=== PATIENT | female | born 1985 | race African-American/Black ===

== ENCOUNTER 2016-10-24 22:14 | Emergency (ER) | payer MEDICAID ==
[~2016-10-24] VITALS: Ht 172.7 cm; Wt 64.0 kg
[~2016-10-24 22:14] MED LIST: FOLIC ACID PO; HYDR-519 PO; [UNRECOGNIZED DRUG - OTHER]
[2016-10-24] MEDS ORDERED: SODIUM CHLORIDE 0.9% 1,000 ML IV ONE (23:38)
[2016-10-24] MEDS ORDERED: KETOROLAC 30MG/ML VIAL IV STA (23:38)
[2016-10-24] MEDS ORDERED: DIPHENHYDRAMINE 50MG/ML VIAL IV ONE (23:45)
[2016-10-25 00:12] LABS: CHLORIDE 109 mEq/L (98-107)
[2016-10-25 00:20] LABS: CARBON DIOXIDE 22 mEq/L (21-32)
[2016-10-25 00:25] LABS: HEMOGLOBIN. 8.3 g/dL (12.0-16.0)
[2016-10-25 00:57] LABS: RED BLOOD CELL COUNT 2.38 mill/uL (4.2-5.4)
[2016-10-25 00:58] LABS: HEMATOCRIT. 22.7 % (36.0-48.0); MEAN CORPUSCULAR HEMOGLOBIN 33.8 pg (28.0-32.0); MEAN CORPUSCULAR VOLUME 95.6 fL (81.0-99.0); MEAN PLATELET VOLUME 9.8 fl (7.4-10.4); NEUTROPHILS % 51.6 % (40.0-76.0); PLATELET 297 x1000/uL (130-400); RED CELL DISTRIBUTION WIDTH 26.3 % (11.6-14.6)
[2016-10-25 00:59] LABS: BASOPHILS % 1.3 % (0.0-2.0); EOSINOPHILS % 3.7 % (0.0-5.0); MONOCYTES % 7.4 % (2.0-8.0)
[2016-10-25 01:35] VITALS: BP 117/74
[2016-10-25] MEDS ORDERED: MORPHINE SULFATE 4 MG/ML CPJ (NOT FOR IM USE) IV ONE (01:45)
[2016-10-25] MEDS ORDERED: ONDANSETRON HCL 4MG/2ML VIAL IV ONE (01:45)
[2016-10-25] MEDS ORDERED: DIPHENHYDRAMINE 50MG/ML VIAL IV ONE (01:45)
[2016-10-25 02:28] LABS: CLARITY URINE CLEAR (CLEAR); COLOR URINE YELLOW (YELLOW); GLUCOSE URINE NEGATIVE (NEGATIVE); KETONES URINE NEGATIVE (NEGATIVE); LEUKOCYTE ESTERASE URINE NEGATIVE (NEGATIVE); NITRITE URINE NEGATIVE (NEGATIVE); OCCULT BLOOD URINE NEGATIVE (NEGATIVE); PH URINE 5.5 (4.5-8.0); PROTEIN URINE NEGATIVE (NEGATIVE); SPECIFIC GRAVITY URINE 1.012 (1.005-1.030)
[2016-10-25 02:44] LABS: *AMPHETAMINES SCREEN URINE NEGATIVE (NEGATIVE); *BENZODIAZEPINES SCREEN URINE NEGATIVE (NEGATIVE); *COCAINE SCREEN URINE NEGATIVE (NEGATIVE); METHADONE URINE SCREEN NEGATIVE (NEGATIVE); OPIATES URINE SCREEN NEGATIVE (NEGATIVE); PHENCYCLIDINE URINE SCREEN NEGATIVE (NEGATIVE)
[2016-10-25 02:54] LABS: CANNABINOID URINE SCREEN PRESUMTIVE POSITIVE (NEGATIVE)
[2016-10-25 03:01] LABS: *BARBITURATES SCREEN URINE NEGATIVE (NEGATIVE)
== END 2016-10-25 03:32 | disposition home or self-care (01) ==
LOC: ER 22:27
DX: D57.1 Sickle-cell disease without crisis (principal); F12.10 Cannabis abuse, uncomplicated; Z90.710 Acquired absence of both cervix and uterus
CPT/HCPCS: 36415; 80053; 80305; 81003; 81025; 85025; 85044; 96361; 96374; 96375; 96376; 99285; C1893; J1200; J1885; J2270; J2405; J7030; Z7610

== ENCOUNTER 2016-12-03 22:08 | Emergency (ER) | payer MEDICAID ==
[~2016-12-03] VITALS: Ht 180.3 cm; Wt 73.0 kg
[2016-12-04] MEDS ORDERED: DIPHENHYDRAMINE 50MG/ML VIAL IV ONE (02:15)
[2016-12-04] MEDS ORDERED: SODIUM CHLORIDE 0.9% 1,000 ML IV ONE (02:15)
[2016-12-04] MEDS ORDERED: HYDROCODONE/ACETAMINOPHEN 10/325MG TABLET PO ONE (02:15)
[2016-12-04 04:40] LABS: CLARITY URINE CLEAR (CLEAR); COLOR URINE YELLOW (YELLOW); GLUCOSE URINE NEGATIVE (NEGATIVE); KETONES URINE NEGATIVE (NEGATIVE); LEUKOCYTE ESTERASE URINE NEGATIVE (NEGATIVE); NITRITE URINE NEGATIVE (NEGATIVE); OCCULT BLOOD URINE NEGATIVE (NEGATIVE); PH URINE 5.5 (4.5-8.0); PROTEIN URINE NEGATIVE (NEGATIVE); SPECIFIC GRAVITY URINE 1.013 (1.005-1.030); UROBILINOGEN URINE 0.2 E.U./dL (0.2-1.0)
[2016-12-04 04:52] LABS: BASOPHILS % 0.9 % (0.0-2.0); HEMATOCRIT. 21.8 % (36.0-48.0); HEMOGLOBIN. 7.7 g/dL (12.0-16.0); LYMPHOCYTES % 42.2 % (20.0-50.0); MEAN CORPUSCULAR HEMOGLOBIN 35.9 pg (28.0-32.0); MEAN CORPUSCULAR VOLUME 101.3 fL (81.0-99.0); MEAN PLATELET VOLUME 9.7 fl (7.4-10.4); NEUTROPHILS % 41.9 % (40.0-76.0); PLATELET 354 x1000/uL (130-400); RED BLOOD CELL COUNT 2.15 mill/uL (4.2-5.4); RED CELL DISTRIBUTION WIDTH 25.2 % (11.6-14.6)
[2016-12-04] MEDS ORDERED: MORPHINE SULFATE 4 MG/ML CPJ (NOT FOR IM USE) IV ONE (05:00)
[2016-12-04 05:02] LABS: CARBON DIOXIDE 21 mEq/L (21-32); CHLORIDE 112 mEq/L (98-107)
[2016-12-04 06:20] VITALS: BP 109/67
== END 2016-12-04 06:22 | disposition home or self-care (01) ==
LOC: ER 22:16
DX: D57.00 Hb-SS disease with crisis, unspecified (principal); Z88.5 Allergy status to narcotic agent
CPT/HCPCS: 36415; 80053; 81003; 81025; 85025; 85044; 96361; 96374; 96375; 99284; J1200; J2270; J7030; Z7610

== ENCOUNTER 2018-03-02 07:25 | Emergency (ER) | payer MEDICAID ==
[~2018-03-02] VITALS: Ht 167.6 cm; Wt 80.0 kg
[2018-03-02] MEDS ORDERED: HYDROMORPHONE HCL/PF 2MG/ML CPJ IV ONE ×2 (07:45→10:00)
[2018-03-02] MEDS ORDERED: SODIUM CHLORIDE 0.9% 1,000 ML IV ONE (07:45)
[2018-03-02] MEDS ORDERED: DIPHENHYDRAMINE 25MG CAPSULE PO ONE (09:00)
[2018-03-02 09:15] LABS: BASOPHILS % 1.4 % (0.0-2.0); HEMATOCRIT. 24.9 % (36.0-48.0); HEMOGLOBIN. 8.6 g/dL (12.0-16.0); LYMPHOCYTES % 22.4 % (20.0-50.0); MEAN CORPUSCULAR HEMOGLOBIN 35.9 pg (28.0-32.0); MEAN CORPUSCULAR VOLUME 103.6 fL (81.0-99.0); MEAN PLATELET VOLUME 9.2 fl (7.4-10.4); MONOCYTES % 6.5 % (2.0-8.0); NEUTROPHILS % 65.7 % (40.0-76.0); PLATELET 370 x1000/uL (130-400); RED CELL DISTRIBUTION WIDTH 24.8 % (11.6-14.6)
[2018-03-02 09:16] LABS: CHLORIDE 113 mEq/L (98-107)
[2018-03-02 09:19] LABS: INR 1.1; PROTHROMBIN TIME 10.6 sec (9.1-11.1)
[2018-03-02 09:47] LABS: CLARITY URINE CLOUDY (CLEAR); COLOR URINE DARK YELLOW (YELLOW); KETONES URINE NEGATIVE (NEGATIVE); LEUKOCYTE ESTERASE URINE 1+ (NEGATIVE); NITRITE URINE NEGATIVE (NEGATIVE); OCCULT BLOOD URINE 3+ (NEGATIVE); PROTEIN URINE TRACE (NEGATIVE); SPECIFIC GRAVITY URINE 1.012 (1.005-1.030)
[2018-03-02 09:55] LABS: PLATELET ESTIMATE NORMAL
[2018-03-02 10:41] LABS: *AMPHETAMINES SCREEN URINE NEGATIVE (NEGATIVE); *BARBITURATES SCREEN URINE NEGATIVE (NEGATIVE)
[2018-03-02 10:42] LABS: *BENZODIAZEPINES SCREEN URINE NEGATIVE (NEGATIVE); *COCAINE SCREEN URINE NEGATIVE (NEGATIVE); METHADONE URINE SCREEN NEGATIVE (NEGATIVE); PHENCYCLIDINE URINE SCREEN NEGATIVE (NEGATIVE)
[2018-03-02 10:46] LABS: CANNABINOID URINE SCREEN PRESUMTIVE POSITIVE (NEGATIVE); OPIATES URINE SCREEN PRESUMTIVE POSITIVE (NEGATIVE)
[2018-03-02 12:00] VITALS: BP 150/78
== END 2018-03-02 12:29 | disposition home or self-care (01) ==
LOC: ER 07:54
DX: D57.00 Hb-SS disease with crisis, unspecified (principal); N39.0 Urinary tract infection, site not specified
CPT/HCPCS: 36415; 71045; 80053; 80305; 81003; 81025; 84484; 85025; 85044; 85610; 93005; 96374; 96376; 99284; J1170; J7030; Q0163

== ENCOUNTER 2018-03-28 01:52 | Inpatient (IN) | payer MEDICAID ==
[~2018-03-28] VITALS: Ht 180.3 cm; Wt 65.8 kg
[2018-03-28] MEDS ORDERED: SODIUM CHLORIDE 0.9% 1,000 ML IV ONE (02:52)
[2018-03-28] MEDS ORDERED: DIPHENHYDRAMINE 50MG/ML VIAL IV ONE ×2 (03:00→04:45)
[2018-03-28] MEDS ORDERED: HYDROMORPHONE HCL/PF 2MG/ML CPJ IV ONE ×2 (03:00→04:45)
[2018-03-28 03:36] LABS: PROTHROMBIN TIME 10.5 sec (9.1-11.1)
[2018-03-28 03:37] LABS: CHLORIDE 106 mEq/L (98-107)
[2018-03-28 04:17] LABS: HEMATOCRIT. 22.6 % (36.0-48.0); HEMOGLOBIN. 7.7 g/dL (12.0-16.0); MEAN CORPUSCULAR HEMOGLOBIN 34.8 pg (28.0-32.0); RED BLOOD CELL COUNT 2.21 mill/uL (4.2-5.4); RED CELL DISTRIBUTION WIDTH 30.5 % (11.6-14.6)
[2018-03-28 04:18] LABS: MEAN PLATELET VOLUME 9.4 fl (7.4-10.4); PLATELET 398 x1000/uL (130-400)
[2018-03-28] MEDS ORDERED: CEFTRIAXONE 1 G PREMIX 50 ML IV ONE (04:45)
[2018-03-28] MEDS ORDERED: AZITHROMYCIN 500 MG in DEXT 5% WATER 250 ML IV SCH (04:45)
[2018-03-28] MEDS ORDERED: SODIUM CHLORIDE 0.9% 1,000 ML IV SCH (04:48)
[2018-03-28] MEDS ORDERED: HYDROMORPHONE HCL/PF 2MG/ML CPJ IV PRN (05:00)
[2018-03-28] MEDS ORDERED: CLONIDINE 0.1MG TABLET PO PRN (07:30)
[2018-03-28] MEDS ORDERED: ONDANSETRON HCL 4MG/2ML INJ IV PRN (07:30)
[2018-03-28] MEDS ORDERED: MAGNESIUM/ALUMINUM HYDROXIDE/SIMETHICONE 30ML UDC PO PRN (07:30)
[2018-03-28] MEDS ORDERED: IPRATROPIUM/ALBUTEROL 0.5-3(2.5)MG/3ML NEB INH PRN (07:30)
[2018-03-28 08:02] LABS: NUCLEATED RED BLOOD CELLS 13 /100 WBC; PLATELET ESTIMATE NORMAL
[2018-03-28 10:00] VITALS: BP 137/72
[2018-03-28] MEDS: ENOXAPARIN 40MG/0.4ML SYR SUBCUT SCH (10:30)
[2018-03-28] MEDS: HYDROMORPHONE HCL/PF 2MG/ML CPJ IV PRN ×3 (11:17→20:07)
[2018-03-28 11:21] LABS: HEPATITIS B SURFACE ANTIGEN NEGATIVE
[2018-03-28] MEDS: DIPHENHYDRAMINE 50MG/ML VIAL IV PRN ×3 (11:22→20:59)
[2018-03-28 11:45] VITALS: BP 137/72
[2018-03-28 11:51] LABS: HEPATITIS A AB IGM NEGATIVE (NEGATIVE)
[2018-03-28 12:00] VITALS: BP 122/73
[2018-03-28] MEDS ORDERED: PROM5SYR PO (12:24)
[2018-03-28] MEDS ORDERED: HYDR4TAB4 MT (12:24)
[2018-03-28] MEDS: SODIUM CHLORIDE 0.9% 1,000 ML IV SCH ×2 (13:30→23:10)
[2018-03-28 16:00] VITALS: BP 127/77
[2018-03-28 17:02] LABS: CREATINE KINASE 31 IU/L (26-192)
[2018-03-28 20:00] VITALS: BP 132/63
[2018-03-29] VITALS: BP 139/92
[2018-03-29] MEDS: DIPHENHYDRAMINE 50MG/ML VIAL IV PRN ×5 (00:30→21:46)
[2018-03-29] MEDS: HYDROMORPHONE HCL/PF 2MG/ML CPJ IV PRN ×7 (00:31→21:46)
[2018-03-29 00:54] LABS: CREATINE KINASE 41 IU/L (26-192)
[2018-03-29] MEDS ORDERED: DEXTROSE 50% WATER 50ML SYRINGE IV PRN (03:15)
[2018-03-29 04:00] VITALS: BP 126/63
[2018-03-29] MEDS: BLOOD SUGAR DIAGNOSTIC STRIP TEST SCH ×4 (06:54→21:00)
[2018-03-29 08:00] VITALS: BP 120/70
[2018-03-29] MEDS: ENOXAPARIN 40MG/0.4ML SYR SUBCUT SCH (08:07)
[2018-03-29] MEDS: INSULIN LISPRO 100 UNITS/ML SUBCUT SCH ×4 (08:08→21:00)
[2018-03-29] MEDS: SODIUM CHLORIDE 0.9% 1,000 ML IV SCH ×2 (09:30→19:30)
[2018-03-29 13:07] LABS: HIV SCREEN 4G Non Reactive (Non Reactive)
[2018-03-29 16:00] VITALS: BP 131/85
[2018-03-29 20:00] VITALS: BP 146/69
[2018-03-29 20:30] VITALS: BP 134/51
[2018-03-30] VITALS: BP 126/75
[2018-03-30] MEDS: HYDROMORPHONE HCL/PF 2MG/ML CPJ IV PRN ×7 (00:01→20:17)
[2018-03-30 01:00] LABS: BASOPHILS % 2.2 % (0.0-2.0); EOSINOPHILS % 3.3 % (0.0-5.0); MONOCYTES % 6.2 % (2.0-8.0)
[2018-03-30 01:06] LABS: CHLORIDE 106 mEq/L (98-107)
[2018-03-30 03:44] LABS: HEMOGLOBIN. 7.2 g/dL (12.0-16.0); RED BLOOD CELL COUNT 1.93 mill/uL (4.2-5.4)
[2018-03-30 03:47] LABS: MEAN CORPUSCULAR VOLUME 103.9 fL (81.0-99.0)
[2018-03-30 03:48] LABS: MEAN CORPUSCULAR HEMOGLOBIN 37.3 pg (28.0-32.0)
[2018-03-30 03:49] LABS: MEAN PLATELET VOLUME 9.7 fl (7.4-10.4); PLATELET 366 x1000/uL (130-400); RED CELL DISTRIBUTION WIDTH 30.3 % (11.6-14.6)
[2018-03-30 04:00] VITALS: BP 161/71
[2018-03-30] MEDS: DIPHENHYDRAMINE 50MG/ML VIAL IV PRN ×6 (04:51→23:42)
[2018-03-30 05:19] LABS: NUCLEATED RED BLOOD CELLS 48 /100 WBC; PLATELET ESTIMATE NORMAL
[2018-03-30] MEDS: SODIUM CHLORIDE 0.9% 1,000 ML IV SCH ×2 (05:30→15:30)
[2018-03-30 06:52] LABS: BASOPHILS % 2.9 % (0.0-2.0); CHLORIDE 106 mEq/L (98-107); HEMOGLOBIN. 7.3 g/dL (12.0-16.0); LYMPHOCYTES % 41.3 % (20.0-50.0); MEAN CORPUSCULAR HEMOGLOBIN 37.1 pg (28.0-32.0); MEAN PLATELET VOLUME 9.7 fl (7.4-10.4); MONOCYTES % 4.7 % (2.0-8.0); NEUTROPHILS % 47.1 % (40.0-76.0); PLATELET 373 x1000/uL (130-400); RED BLOOD CELL COUNT 1.98 mill/uL (4.2-5.4); RED CELL DISTRIBUTION WIDTH 30.1 % (11.6-14.6)
[2018-03-30] MEDS: BLOOD SUGAR DIAGNOSTIC STRIP TEST SCH ×4 (07:01→21:00)
[2018-03-30 07:19] LABS: HEMATOCRIT. 20.8 % (36.0-48.0)
[2018-03-30] MEDS: INSULIN LISPRO 100 UNITS/ML SUBCUT SCH ×4 (07:50→21:00)
[2018-03-30 08:00] VITALS: BP 149/69
[2018-03-30] MEDS: ENOXAPARIN 40MG/0.4ML SYR SUBCUT SCH (08:59)
[2018-03-30 12:00] VITALS: BP 140/68
[2018-03-30 16:00] VITALS: BP 144/62
[2018-03-30 20:00] VITALS: BP 128/82
[2018-03-30] MEDS ORDERED: HYDROMORPHONE HCL/PF 2MG/ML CPJ IV PRN (21:30)
[2018-03-31] VITALS: BP 145/80
[2018-03-31] MEDS: SODIUM CHLORIDE 0.9% 1,000 ML IV SCH ×2 (01:30→11:30)
[2018-03-31 04:00] VITALS: BP 149/83
[2018-03-31] MEDS: HYDROMORPHONE HCL/PF 2MG/ML CPJ IV PRN ×6 (04:12→22:56)
[2018-03-31] MEDS: DIPHENHYDRAMINE 50MG/ML VIAL IV PRN ×6 (04:12→22:51)
[2018-03-31 06:50] LABS: BASOPHILS % 2.9 % (0.0-2.0); HEMATOCRIT. 23.1 % (36.0-48.0); HEMOGLOBIN. 8.1 g/dL (12.0-16.0); LYMPHOCYTES % 33.8 % (20.0-50.0); MEAN CORPUSCULAR HEMOGLOBIN 36.9 pg (28.0-32.0); MEAN CORPUSCULAR VOLUME 105.1 fL (81.0-99.0); MEAN PLATELET VOLUME 10.2 fl (7.4-10.4); MONOCYTES % 5.6 % (2.0-8.0); NEUTROPHILS % 52.7 % (40.0-76.0); PLATELET 377 x1000/uL (130-400); RED CELL DISTRIBUTION WIDTH 27.5 % (11.6-14.6)
[2018-03-31] MEDS: BLOOD SUGAR DIAGNOSTIC STRIP TEST SCH ×5 (07:20→22:59)
[2018-03-31] MEDS: INSULIN LISPRO 100 UNITS/ML SUBCUT SCH ×4 (07:50→21:00)
[2018-03-31 08:00] VITALS: BP 169/85
[2018-03-31] MEDS: ENOXAPARIN 40MG/0.4ML SYR SUBCUT SCH (08:27)
[2018-03-31] MEDS: FOLIC ACID 1MG TABLET PO SCH (08:36)
[2018-03-31 10:11] LABS: CHLORIDE 104 mEq/L (98-107)
[2018-03-31 12:00] VITALS: BP 138/80
[2018-03-31] MEDS ORDERED: SODIUM BICARBONATE 4% (2.4MEQ) 5ML VIAL IV ONE (13:30)
[2018-03-31] MEDS ORDERED: LIDOCAINE HCL 1% 20ML VIAL (Pyxis) INJ ONE (13:30)
[2018-03-31 16:00] VITALS: BP 137/83
[2018-03-31 20:00] VITALS: BP 150/62
[2018-04-01] VITALS: BP 171/72
[2018-04-01] MEDS: HYDROMORPHONE HCL/PF 2MG/ML CPJ IV PRN ×4 (03:13→13:21)
[2018-04-01] MEDS: DIPHENHYDRAMINE 50MG/ML VIAL IV PRN ×3 (03:19→13:21)
[2018-04-01 04:00] VITALS: BP_SYST 152
[2018-04-01] MEDS: INSULIN LISPRO 100 UNITS/ML SUBCUT SCH ×2 (07:50→12:30)
[2018-04-01 08:00] VITALS: BP_SYST 148; BP_SYST 162; BP_DIAS 62; BP_DIAS 87
[2018-04-01] MEDS: ENOXAPARIN 40MG/0.4ML SYR SUBCUT SCH (09:00)
[2018-04-01] MEDS: FOLIC ACID 1MG TABLET PO SCH (09:00)
[2018-04-01 09:56] LABS: HEMATOCRIT. 23.1 % (36.0-48.0); HEMOGLOBIN. 8.1 g/dL (12.0-16.0); MEAN CORPUSCULAR HEMOGLOBIN 36.8 pg (28.0-32.0); MEAN CORPUSCULAR VOLUME 104.9 fL (81.0-99.0); MEAN PLATELET VOLUME 9.3 fl (7.4-10.4); PLATELET 275 x1000/uL (130-400); RED CELL DISTRIBUTION WIDTH 24.9 % (11.6-14.6)
[2018-04-01 10:13] LABS: CHLORIDE 103 mEq/L (98-107)
[2018-04-01] MEDS ORDERED: FOLI-43 PO (11:22)
[2018-04-01 12:00] VITALS: BP_SYST 132; BP_SYST 144; BP_DIAS 61; BP_DIAS 90
[2018-04-01 12:17] LABS: NUCLEATED RED BLOOD CELLS 16 /100 WBC; PLATELET ESTIMATE NORMAL
[2018-04-01] MEDS: BLOOD SUGAR DIAGNOSTIC STRIP TEST SCH (12:20)
[2018-04-01 12:56] VITALS: BP 142/68
[2018-04-01 13:21] VITALS: BP 142/62
== END 2018-04-01 13:40 | disposition home or self-care (01) | DRG 662 ==
LOC: ER 01:52 → 7WST 04:49 → EDBEDREQ 04:51 → ENRESERV 08:00 → 6EST 03-29 21:35
PROVIDERS: ADMIT Internal Medicine; ATTEND Internal Medicine
PROC: 02HV33Z Insertion of Infusion Device into Superior Vena Cava, Percutaneous Approach (ICD-10-PCS; principal; 2018-03-31)
PROC: B548ZZA Ultrasonography of Superior Vena Cava, Guidance (ICD-10-PCS; 2018-03-31)
PROC: B5181ZA Fluoroscopy of Superior Vena Cava using Low Osmolar Contrast, Guidance (ICD-10-PCS; 2018-03-31)
DX: D57.00 Hb-SS disease with crisis, unspecified (principal); J96.00 Acute respiratory failure, unspecified whether with hypoxia or hypercapnia; L29.9 Pruritus, unspecified; Z79.899 Other long term (current) drug therapy; Z88.5 Allergy status to narcotic agent; Z88.8 Allergy status to other drugs, medicaments and biological substances; Z90.49 Acquired absence of other specified parts of digestive tract; E83.52 Hypercalcemia
CPT/HCPCS: 36415; 36569; 71045; 76937; 77001; 80048; 82550; 83735; 84443; 85044; 86705; 86709; 86803; 87340; 87389; 93970; 96361; 96374; 96375; 97161; 97166; 99285; C1725; C1769; C1893; J0456; J0696; J1170; J1200; J1650; J2405; J3490; J7030; J7060

== ENCOUNTER 2018-04-04 00:28 | Inpatient (IN) | payer MEDICAID ==
[~2018-04-04] VITALS: Ht 180.3 cm; Wt 64.9 kg
[~2018-04-04 00:28] MED LIST changes: +FOLI-43 PO; -FOLIC ACID PO; +HYDR4TAB4 MT; +PROM5SYR PO
[2018-04-04] MEDS ORDERED: FENTANYL CITRATE/PF 50MCG/ML 2ML VIAL IV ONE (07:15)
[2018-04-04] MEDS ORDERED: DIPHENHYDRAMINE 50MG CAPSULE PO ONE (07:15)
[2018-04-04] MEDS ORDERED: HYDROMORPHONE HCL/PF 2MG/ML CPJ IV ONE ×2 (07:30→10:30)
[2018-04-04 07:59] LABS: HEMATOCRIT. 25.5 % (36.0-48.0); HEMOGLOBIN. 8.8 g/dL (12.0-16.0); MEAN CORPUSCULAR HEMOGLOBIN 35.4 pg (28.0-32.0); MEAN CORPUSCULAR VOLUME 102.8 fL (81.0-99.0); MEAN PLATELET VOLUME 9.6 fl (7.4-10.4); PLATELET 371 x1000/uL (130-400); RED BLOOD CELL COUNT 2.48 mill/uL (4.2-5.4); RED CELL DISTRIBUTION WIDTH 23.2 % (11.6-14.6)
[2018-04-04 08:06] LABS: CHLORIDE 108 mEq/L (98-107)
[2018-04-04 08:13] LABS: HCG SCREEN NEGATIVE
[2018-04-04 08:55] LABS: NUCLEATED RED BLOOD CELLS 3 /100 WBC
[2018-04-04 08:56] LABS: PLATELET ESTIMATE NORMAL
[2018-04-04] MEDS ORDERED: IOHEXOL-350 100 ML BOTTLE ONE (09:26)
[2018-04-04] MEDS ORDERED: LEVOFLOXACIN 750MG PREMIX 150 ML IV ONE (09:45)
[2018-04-04] MEDS ORDERED: SODIUM CHLORIDE 0.9% 1000ML BAG (SEPSIS BOLUS) IV ONE (09:45)
[2018-04-04] MEDS ORDERED: VANCOMYCIN 1 G PREMIX 200 ML IV ONE (09:45)
[2018-04-04] MEDS ORDERED: PIPERACILLIN/TAZ 3.375G PREMIX 50 ML IV ONE (09:45)
[2018-04-04 14:52] LABS: CREATINE KINASE 23 IU/L (26-192)
[2018-04-04 14:54] LABS: CREATINE KINASE MB FRACTION < 1.0 ng/mL (0.5-3.6)
[2018-04-04 15:14] LABS: HEPATITIS B SURFACE ANTIGEN NEGATIVE
[2018-04-04 15:17] LABS: GAMMA GLUTAMYL TRANSPEPTIDASE 73 IU/L (7-32)
[2018-04-04 15:44] LABS: HEPATITIS A AB IGM NEGATIVE (NEGATIVE)
[2018-04-04] MEDS ORDERED: HYDROMORPHONE HCL/PF 2MG/ML CPJ IV NR (17:00)
[2018-04-04 21:10] VITALS: BP 152/75
[2018-04-04 21:23] VITALS: BP 154/75
[2018-04-04] MEDS: HYDROMORPHONE HCL/PF 2MG/ML CPJ IV PRN (22:37)
[2018-04-05] VITALS (7 sets, daily range): BP systolic 110–149; BP diastolic 49–101
[2018-04-05] MEDS: HYDROMORPHONE HCL/PF 2MG/ML CPJ IV PRN ×5 (02:15→22:47)
[2018-04-05 06:30] LABS: CHLORIDE 105 mEq/L (98-107)
[2018-04-05 06:39] LABS: CREATINE KINASE 15 IU/L (26-192)
[2018-04-05 06:42] LABS: CREATINE KINASE MB FRACTION < 1.0 ng/mL (0.5-3.6)
[2018-04-05] MEDS: FOLIC ACID 1MG TABLET PO SCH (08:57)
[2018-04-05 09:23] LABS: MEAN CORPUSCULAR HEMOGLOBIN 35.8 pg (28.0-32.0); MEAN CORPUSCULAR VOLUME 103.6 fL (81.0-99.0); MEAN PLATELET VOLUME 9.8 fl (7.4-10.4); PLATELET 290 x1000/uL (130-400); RED BLOOD CELL COUNT 2.02 mill/uL (4.2-5.4); RED CELL DISTRIBUTION WIDTH 22.1 % (11.6-14.6)
[2018-04-05 09:27] LABS: HEMOGLOBIN. 7.2 g/dL (12.0-16.0)
[2018-04-05] MEDS ORDERED: HYDROMORPHONE HCL/PF 2MG/ML CPJ IV PRN (09:37)
[2018-04-05] MEDS ORDERED: CLONIDINE 0.2MG TABLET PO PRN (11:30)
[2018-04-05] MEDS ORDERED: CLONIDINE 0.1MG TABLET PO PRN (11:30)
[2018-04-05] MEDS: DIPHENHYDRAMINE 50MG/ML VIAL IV PRN ×2 (11:54→18:34)
[2018-04-05] MEDS: SODIUM CHLORIDE 0.9% 1,000 ML IV SCH (11:54)
[2018-04-05] MEDS: AMLODIPINE 2.5MG TABLET PO SCH ×3 (15:50→18:43)
[2018-04-05 19:36] LABS: NUCLEATED RED BLOOD CELLS 4 /100 WBC; PLATELET ESTIMATE NORMAL
[2018-04-05] MEDS: VALACYCLOVIR HCL 500MG TABLET PO SCH ×2 (21:00→22:48)
[2018-04-06 00:36] VITALS: BP 130/67
[2018-04-06] MEDS: DIPHENHYDRAMINE 50MG/ML VIAL IV PRN ×4 (00:45→22:05)
[2018-04-06] MEDS: HYDROMORPHONE HCL/PF 2MG/ML CPJ IV PRN ×5 (02:52→21:13)
[2018-04-06 04:00] VITALS: BP 130/66
[2018-04-06] MEDS: SODIUM CHLORIDE 0.9% 1,000 ML IV SCH (06:21)
[2018-04-06 08:00] VITALS: BP 130/62
[2018-04-06] MEDS: AMLODIPINE 2.5MG TABLET PO SCH ×2 (09:00→17:00)
[2018-04-06] MEDS: VALACYCLOVIR HCL 500MG TABLET PO SCH ×3 (09:51→19:15)
[2018-04-06] MEDS: FOLIC ACID 1MG TABLET PO SCH (09:54)
[2018-04-06] MEDS ORDERED: DIPHENHYDRAMINE 50MG/ML VIAL IV PRN (10:30)
[2018-04-06 12:26] LABS: CHLORIDE 106 mEq/L (98-107)
[2018-04-06 12:28] VITALS: BP 132/75
[2018-04-06 16:19] VITALS: BP 132/70
[2018-04-06 18:36] LABS: HEMATOCRIT. 23.3 % (36.0-48.0); HEMOGLOBIN. 8.2 g/dL (12.0-16.0); MEAN CORPUSCULAR HEMOGLOBIN 35.5 pg (28.0-32.0); MEAN CORPUSCULAR VOLUME 100.6 fL (81.0-99.0); MEAN PLATELET VOLUME 9.2 fl (7.4-10.4); PLATELET 372 x1000/uL (130-400); RED BLOOD CELL COUNT 2.32 mill/uL (4.2-5.4); RED CELL DISTRIBUTION WIDTH 23.8 % (11.6-14.6)
[2018-04-06 18:41] LABS: CHLORIDE 103 mEq/L (98-107)
[2018-04-06 19:13] LABS: NUCLEATED RED BLOOD CELLS 3 /100 WBC; PLATELET ESTIMATE NORMAL
[2018-04-06 20:40] VITALS: BP 127/62
[2018-04-07] VITALS: BP 131/63
[2018-04-07] MEDS: HYDROMORPHONE HCL 2MG TABLET PO PRN ×3 (01:22→17:10)
[2018-04-07] MEDS: DIPHENHYDRAMINE 50MG/ML VIAL IV PRN ×4 (02:06→21:12)
[2018-04-07] MEDS: SODIUM CHLORIDE 0.9% 1,000 ML IV SCH ×2 (02:30→12:30)
[2018-04-07 04:00] VITALS: BP 136/69
[2018-04-07 08:00] VITALS: BP 135/70
[2018-04-07] MEDS: FOLIC ACID 1MG TABLET PO SCH (09:08)
[2018-04-07] MEDS: VALACYCLOVIR HCL 500MG TABLET PO SCH ×3 (09:08→17:12)
[2018-04-07] MEDS: AMLODIPINE 2.5MG TABLET PO SCH ×2 (09:09→17:00)
[2018-04-07 12:00] VITALS: BP 140/70
[2018-04-07] MEDS: HYDROMORPHONE HCL/PF 2MG/ML CPJ IV PRN ×2 (13:16→21:59)
[2018-04-07 16:00] VITALS: BP 119/68
[2018-04-07 18:41] LABS: CHLORIDE 103 mEq/L (98-107)
[2018-04-07 18:46] LABS: HEMATOCRIT. 22.4 % (36.0-48.0); HEMOGLOBIN. 7.6 g/dL (12.0-16.0); MEAN CORPUSCULAR HEMOGLOBIN 34.8 pg (28.0-32.0); MEAN CORPUSCULAR VOLUME 102.1 fL (81.0-99.0); MEAN PLATELET VOLUME 9.9 fl (7.4-10.4); PLATELET 394 x1000/uL (130-400); RED BLOOD CELL COUNT 2.19 mill/uL (4.2-5.4); RED CELL DISTRIBUTION WIDTH 22.4 % (11.6-14.6)
[2018-04-07 20:00] VITALS: BP 140/79
[2018-04-07 22:50] LABS: NUCLEATED RED BLOOD CELLS 3 /100 WBC; PLATELET ESTIMATE NORMAL
[2018-04-08] VITALS (8 sets, daily range): BP systolic 100–131; BP diastolic 53–79
[2018-04-08] MEDS: SODIUM CHLORIDE 0.9% 1,000 ML IV SCH (02:14)
[2018-04-08] MEDS: DIPHENHYDRAMINE 50MG/ML VIAL IV PRN ×4 (02:14→19:44)
[2018-04-08] MEDS: HYDROMORPHONE HCL 2MG TABLET PO PRN ×2 (03:06→13:19)
[2018-04-08] MEDS: VALACYCLOVIR HCL 500MG TABLET PO SCH ×2 (08:42→13:18)
[2018-04-08] MEDS: FOLIC ACID 1MG TABLET PO SCH (08:42)
[2018-04-08] MEDS: HYDROMORPHONE HCL/PF 2MG/ML CPJ IV PRN ×2 (08:43→18:47)
[2018-04-08] MEDS: AMLODIPINE 2.5MG TABLET PO SCH (08:45)
== END 2018-04-08 21:00 | disposition home or self-care (01) | DRG 383 ==
LOC: ER 00:28 → 6WST 10:46 → EDBEDREQ 10:48 → ENRESERV 20:40
PROVIDERS: ADMIT Internal Medicine; ATTEND Internal Medicine
DX: B02.9 Zoster without complications (principal); D57.00 Hb-SS disease with crisis, unspecified; F11.20 Opioid dependence, uncomplicated; N28.1 Cyst of kidney, acquired; R79.1 Abnormal coagulation profile; N75.0 Cyst of Bartholin's gland; R74.0 Nonspecific elevation of levels of transaminase and lactic acid dehydrogenase [LDH]; I10 Essential (primary) hypertension; Z88.8 Allergy status to other drugs, medicaments and biological substances; Z90.49 Acquired absence of other specified parts of digestive tract; Z88.5 Allergy status to narcotic agent
CPT/HCPCS: 36415; 71045; 71275; 76700; 80048; 80076; 82550; 82553; 82805; 82977; 83605; 83735; 83880; 84145; 84443; 84484; 84703; 85044; 85379; 86705; 86709; 86803; 87340; 93005; 93306; 93970; 96365; 96367; 99291; C1893; J1170; J1200; J1956; J2543; J3370; J7030; Q0163; Q9967

== ENCOUNTER 2018-04-26 23:53 | Emergency (ER) | payer MEDICAID ==
[~2018-04-26] VITALS: Ht 180.3 cm; Wt 64.0 kg
[2018-04-27] MEDS ORDERED: IBUPROFEN 600MG TABLET PO ONE (06:45)
[2018-04-27 07:27] LABS: CHLORIDE 108 mEq/L (98-107)
[2018-04-27 07:47] LABS: HEMOGLOBIN. 8.5 g/dL (12.0-16.0); MEAN CORPUSCULAR HEMOGLOBIN 36.6 pg (28.0-32.0); MEAN CORPUSCULAR VOLUME 103.9 fL (81.0-99.0); MEAN PLATELET VOLUME 9.6 fl (7.4-10.4); PLATELET 315 x1000/uL (130-400); RED BLOOD CELL COUNT 2.31 mill/uL (4.2-5.4); RED CELL DISTRIBUTION WIDTH 24.2 % (11.6-14.6)
[2018-04-27 07:48] LABS: CLARITY URINE CLOUDY (CLEAR); COLOR URINE YELLOW (YELLOW); KETONES URINE NEGATIVE (NEGATIVE); LEUKOCYTE ESTERASE URINE TRACE (NEGATIVE); NITRITE URINE NEGATIVE (NEGATIVE); OCCULT BLOOD URINE 3+ (NEGATIVE); PROTEIN URINE TRACE (NEGATIVE); SPECIFIC GRAVITY URINE 1.012 (1.005-1.030)
[2018-04-27 08:25] LABS: NUCLEATED RED BLOOD CELLS 1 /100 WBC; PLATELET ESTIMATE NORMAL
[2018-04-27 08:56] LABS: *BARBITURATES SCREEN URINE NEGATIVE (NEGATIVE); CANNABINOID URINE SCREEN PRESUMTIVE POSITIVE (NEGATIVE)
[2018-04-27 08:57] LABS: *BENZODIAZEPINES SCREEN URINE NEGATIVE (NEGATIVE); *COCAINE SCREEN URINE NEGATIVE (NEGATIVE); METHADONE URINE SCREEN NEGATIVE (NEGATIVE); OPIATES URINE SCREEN NEGATIVE (NEGATIVE); PHENCYCLIDINE URINE SCREEN NEGATIVE (NEGATIVE)
[2018-04-27 08:59] LABS: *AMPHETAMINES SCREEN URINE NEGATIVE (NEGATIVE)
[2018-04-27 09:40] VITALS: BP 125/80
== END 2018-04-27 09:42 | disposition home or self-care (01) ==
LOC: ER 23:53
DX: N12 Tubulo-interstitial nephritis, not specified as acute or chronic (principal); M54.5 Low back pain; D57.1 Sickle-cell disease without crisis; Z90.49 Acquired absence of other specified parts of digestive tract; Z88.5 Allergy status to narcotic agent
CPT/HCPCS: 36415; 80305; 81025; 85044; 99283

== ENCOUNTER 2018-09-03 03:02 | Inpatient (IN) | payer MEDICAID ==
[~2018-09-03] VITALS: Ht 180.3 cm; Wt 65.8 kg
[2018-09-03] MEDS ORDERED: MORPHINE SULFATE 4 MG/ML CPJ (NOT FOR IM USE) IV STA (03:31)
[2018-09-03] MEDS ORDERED: SODIUM CHLORIDE 0.9% 1,000 ML IV ONE (03:31)
[2018-09-03] MEDS ORDERED: ONDANSETRON HCL 4MG/2ML INJ IV STA (03:31)
[2018-09-03] MEDS ORDERED: DIPHENHYDRAMINE 25MG CAPSULE PO ONE ×2 (03:45→06:00)
[2018-09-03 04:44] LABS: CLARITY URINE CLEAR (CLEAR); COLOR URINE YELLOW (YELLOW); KETONES URINE NEGATIVE (NEGATIVE); LEUKOCYTE ESTERASE URINE 1+ (NEGATIVE); NITRITE URINE NEGATIVE (NEGATIVE); OCCULT BLOOD URINE NEGATIVE (NEGATIVE); PH URINE 5.5 (4.5-8.0); PROTEIN URINE NEGATIVE (NEGATIVE); SPECIFIC GRAVITY URINE 1.012 (1.005-1.030)
[2018-09-03] MEDS ORDERED: CEFTRIAXONE 1 G PREMIX 50 ML IV ONE (05:15)
[2018-09-03 05:18] LABS: HEMATOCRIT. 22.7 % (36.0-48.0); MEAN CORPUSCULAR VOLUME 106.1 fL (81.0-99.0); MEAN PLATELET VOLUME 9.6 fl (7.4-10.4); PLATELET 343 x1000/uL (130-400); RED BLOOD CELL COUNT 2.13 mill/uL (4.2-5.4); RED CELL DISTRIBUTION WIDTH 22.4 % (11.6-14.6)
[2018-09-03 05:19] LABS: CHLORIDE 112 mEq/L (98-107)
[2018-09-03] MEDS ORDERED: HYDROCODONE/ACETAMINOPHEN 5/325MG TABLET PO ONE (06:00)
[2018-09-03 06:14] LABS: MEAN CORPUSCULAR HEMOGLOBIN 37.6 pg (28.0-32.0)
[2018-09-03 07:27] LABS: ATYPICAL LYMPHOCYTES 2; NUCLEATED RED BLOOD CELLS 3 /100 WBC; PLATELET ESTIMATE NORMAL
[2018-09-03] MEDS ORDERED: MAGNESIUM/ALUMINUM HYDROXIDE/SIMETHICONE 30ML UDC PO PRN (08:15)
[2018-09-03] MEDS ORDERED: ONDANSETRON HCL 4MG/2ML INJ IV PRN (08:15)
[2018-09-03] MEDS ORDERED: CLONIDINE 0.1MG TABLET PO PRN (08:15)
[2018-09-03] MEDS ORDERED: DOCUSATE SODIUM 100MG CAPSULE PO PRN (08:15)
[2018-09-03] MEDS ORDERED: IPRATROPIUM/ALBUTEROL 0.5-3(2.5)MG/3ML NEB INH PRN (08:15)
[2018-09-03] MEDS ORDERED: HYDROCODONE/ACETAMINOPHEN 5/325MG TABLET PO PRN (08:15)
[2018-09-03] MEDS ORDERED: GUAIFENESIN 200MG/10ML SUGAR FREE UDC PO PRN (08:15)
[2018-09-03] MEDS ORDERED: ACETAMINOPHEN 325MG TABLET PO PRN (08:15)
[2018-09-03 08:37] LABS: PHOSPHORUS 2.7 mg/dL (2.5-4.9)
[2018-09-03] MEDS: DIPHENHYDRAMINE 50MG/ML VIAL IV PRN ×4 (10:24→22:38)
[2018-09-03] MEDS: HYDROMORPHONE HCL/PF 2MG/ML CPJ IV PRN ×5 (10:24→22:38)
[2018-09-03 11:29] VITALS: BP 133/80
[2018-09-03 12:00] VITALS: BP 133/80
[2018-09-03] MEDS: SODIUM CHLORIDE 0.9% 1,000 ML IV SCH (12:44)
[2018-09-03 15:48] VITALS: BP 137/84
[2018-09-03 16:10] VITALS: BP 137/84
[2018-09-03 20:00] VITALS: BP 119/64
[2018-09-04] VITALS: BP 139/62
[2018-09-04] MEDS: HYDROMORPHONE HCL/PF 2MG/ML CPJ IV PRN ×3 (03:10→11:41)
[2018-09-04] MEDS: DIPHENHYDRAMINE 50MG/ML VIAL IV PRN ×3 (03:28→11:41)
[2018-09-04 04:18] VITALS: BP 121/65
[2018-09-04] MEDS: SODIUM CHLORIDE 0.9% 1,000 ML IV SCH (05:13)
[2018-09-04] MEDS ORDERED: CEFTRIAXONE 1 G PREMIX 50 ML IV SCH (06:00)
[2018-09-04 08:00] VITALS: BP 126/71
[2018-09-04] MEDS ORDERED: FOLIC ACID 1MG TABLET PO SCH (11:30)
[2018-09-04 12:00] VITALS: BP 151/77
[2018-09-04 13:27] VITALS: BP 115/62
== END 2018-09-04 14:35 | disposition home or self-care (01) | DRG 463 ==
LOC: ER 03:02 → 6EST 05:59 → ENRESERV 08:17
PROVIDERS: ADMIT Internal Medicine; ATTEND Internal Medicine
DX: N39.0 Urinary tract infection, site not specified (principal); D57.00 Hb-SS disease with crisis, unspecified; R52 Pain, unspecified; Z88.5 Allergy status to narcotic agent; Z76.5 Malingerer [conscious simulation]; R74.0 Nonspecific elevation of levels of transaminase and lactic acid dehydrogenase [LDH]
CPT/HCPCS: 36415; 71045; 76700; 81025; 83735; 84100; 85044; 93005; 93970; 96365; 96366; 96375; 99285; C1893; J0696; J1170; J1200; J2270; J2405; J7030; Q0163

== ENCOUNTER 2018-10-04 20:07 | Inpatient (IN) | payer MEDICAID ==
[~2018-10-04] VITALS: Ht 157.5 cm; Wt 62.6 kg
[2018-10-04] MEDS ORDERED: SODIUM CHLORIDE 0.9% 1,000 ML IV ONE (22:27)
[2018-10-04] MEDS ORDERED: DIPHENHYDRAMINE 50MG/ML VIAL IV ONE (22:45)
[2018-10-04] MEDS ORDERED: ONDANSETRON HCL 4MG/2ML INJ IV ONE (22:45)
[2018-10-04] MEDS ORDERED: MORPHINE SULFATE 4 MG/ML CPJ (NOT FOR IM USE) IV ONE (22:45)
[2018-10-05 00:22] LABS: HEMATOCRIT. 24.4 % (36.0-48.0); HEMOGLOBIN. 8.7 g/dL (12.0-16.0); MEAN CORPUSCULAR VOLUME 103.7 fL (81.0-99.0); MEAN PLATELET VOLUME 9.4 fl (7.4-10.4); PLATELET 367 x1000/uL (130-400); RED BLOOD CELL COUNT 2.35 mill/uL (4.2-5.4); RED CELL DISTRIBUTION WIDTH 21.2 % (11.6-14.6)
[2018-10-05 00:25] LABS: PROTHROMBIN TIME 10.6 sec (9.6-11.0)
[2018-10-05 00:26] LABS: CHLORIDE 104 mEq/L (98-107)
[2018-10-05 00:30] LABS: ETHANOL BLOOD < 10 mg/dL
[2018-10-05 00:32] LABS: CLARITY URINE CLEAR (CLEAR); COLOR URINE YELLOW (YELLOW); KETONES URINE NEGATIVE (NEGATIVE); LEUKOCYTE ESTERASE URINE NEGATIVE (NEGATIVE); NITRITE URINE NEGATIVE (NEGATIVE); OCCULT BLOOD URINE NEGATIVE (NEGATIVE); PROTEIN URINE NEGATIVE (NEGATIVE); SPECIFIC GRAVITY URINE 1.013 (1.005-1.030); UROBILINOGEN URINE 0.2 E.U./dL (0.2-1.0)
[2018-10-05 00:43] LABS: HCG SCREEN NEGATIVE
[2018-10-05 01:18] LABS: *AMPHETAMINES SCREEN URINE NEGATIVE (NEGATIVE); *BARBITURATES SCREEN URINE NEGATIVE (NEGATIVE); *BENZODIAZEPINES SCREEN URINE NEGATIVE (NEGATIVE); *COCAINE SCREEN URINE NEGATIVE (NEGATIVE); METHADONE URINE SCREEN NEGATIVE (NEGATIVE)
[2018-10-05 01:19] LABS: PHENCYCLIDINE URINE SCREEN NEGATIVE (NEGATIVE)
[2018-10-05 01:44] LABS: CANNABINOID URINE SCREEN PRESUMTIVE POSITIVE (NEGATIVE); OPIATES URINE SCREEN PRESUMTIVE POSITIVE (NEGATIVE)
[2018-10-05 04:11] LABS: NUCLEATED RED BLOOD CELLS 3 /100 WBC
[2018-10-05 04:13] LABS: PLATELET ESTIMATE NORMAL
[2018-10-05] MEDS ORDERED: MORPHINE SULFATE 2 MG/ML CPJ (NOT FOR IM USE) IV PRN (04:56)
[2018-10-05 07:50] VITALS: BP 131/46
[2018-10-05 08:00] VITALS: BP 118/69
[2018-10-05] MEDS ORDERED: HYDROCODONE/ACETAMINOPHEN 10/325MG TABLET PO PRN (08:00)
[2018-10-05] MEDS ORDERED: FOLIC ACID 1MG TABLET PO SCH (08:00)
[2018-10-05] MEDS ORDERED: ONDANSETRON HCL 4MG/2ML INJ IV PRN (08:00)
[2018-10-05] MEDS ORDERED: ACETAMINOPHEN 325MG TABLET PO PRN (08:00)
[2018-10-05] MEDS: FOLIC ACID 1MG TABLET PO SCH (09:57)
[2018-10-05] MEDS: DIPHENHYDRAMINE 50MG/ML VIAL IV PRN ×2 (10:02→14:33)
[2018-10-05] MEDS: SODIUM CHLORIDE 0.9% 1,000 ML IV SCH ×2 (10:02→21:50)
[2018-10-05] MEDS: HYDROMORPHONE HCL/PF 2MG/ML CPJ IV PRN ×3 (10:04→18:58)
[2018-10-05 12:00] VITALS: BP 114/71
[2018-10-05] MEDS ORDERED: DIPHENHYDRAMINE 25MG CAPSULE PO PRN (15:15)
[2018-10-05 16:00] VITALS: BP 112/82
[2018-10-05 20:00] VITALS: BP 139/79
[2018-10-06] VITALS: BP 127/69
[2018-10-06] MEDS: DIPHENHYDRAMINE 50MG/ML VIAL IV PRN ×3 (00:30→08:20)
[2018-10-06] MEDS: HYDROMORPHONE HCL/PF 2MG/ML CPJ IV PRN ×3 (00:30→08:22)
[2018-10-06 04:00] VITALS: BP 114/57
[2018-10-06 08:00] VITALS: BP 140/70
[2018-10-06] MEDS: FOLIC ACID 1MG TABLET PO SCH (08:37)
[2018-10-06] MEDS ORDERED: HYDROMORPHONE HCL 4MG TABLET PO PRN (09:00)
[2018-10-06 11:23] VITALS: BP 140/70
[2018-10-07 05:15] LABS: CHLAMYDIA TRACHOMATIS NAA Negative (Negative); NEISSERIA GONORRHOEAE NAA Negative (Negative)
== END 2018-10-06 11:44 | disposition home or self-care (01) | DRG 662 ==
LOC: ER 20:07 → 8WST 10-05 00:54 → EDBEDREQ 10-05 00:56 → EDBEDREQTM 10-05 00:56 → ENRESERV 10-05 04:55
PROVIDERS: ADMIT Internal Medicine; ATTEND Internal Medicine
DX: D57.00 Hb-SS disease with crisis, unspecified (principal); R16.0 Hepatomegaly, not elsewhere classified; D72.829 Elevated white blood cell count, unspecified; F12.90 Cannabis use, unspecified, uncomplicated; Z76.5 Malingerer [conscious simulation]; Z90.49 Acquired absence of other specified parts of digestive tract; Z88.5 Allergy status to narcotic agent; Z88.8 Allergy status to other drugs, medicaments and biological substances; Z79.1 Long term (current) use of non-steroidal anti-inflammatories (NSAID); Z79.899 Other long term (current) drug therapy
CPT/HCPCS: 36415; 71045; 80305; 80320; 83880; 84484; 84703; 85044; 86850; 86870; 86900; 87210; 87491; 87591; 93005; 96374; 96375; 99285; J1170; J1200; J2270; J2405; J7030; Q0163; G0480

== ENCOUNTER 2019-08-11 23:11 | Inpatient (IN) | payer MEDICAID ==
[~2019-08-11] VITALS: Ht 180.3 cm; Wt 66.0 kg
[2019-08-11] MEDS ORDERED: SODIUM CHLORIDE 0.9% 1,000 ML IV ONE (23:29)
[2019-08-12 00:01] LABS: CHLORIDE 109 mEq/L (98-107)
[2019-08-12 00:13] LABS: BASOPHILS % 2.1 % (0.0-2.0); HEMATOCRIT. 27.5 % (36.0-48.0); HEMOGLOBIN. 9.7 g/dL (12.0-16.0); LYMPHOCYTES % 34.4 % (20.0-50.0); MEAN CORPUSCULAR HEMOGLOBIN 31.6 pg (28.0-32.0); MEAN CORPUSCULAR VOLUME 89.4 fL (81.0-99.0); MEAN PLATELET VOLUME 9.9 fl (7.4-10.4); MONOCYTES % 8.4 % (2.0-8.0); NEUTROPHILS % 51.1 % (40.0-76.0); PLATELET 360 x1000/uL (130-400); RED BLOOD CELL COUNT 3.08 mill/uL (4.2-5.4); RED CELL DISTRIBUTION WIDTH 24.4 % (11.6-14.6)
[2019-08-12 00:21] LABS: HCG SCREEN NEGATIVE
[2019-08-12] MEDS ORDERED: FENTANYL CITRATE/PF 50MCG/ML 2ML VIAL IV ONE (01:15)
[2019-08-12 01:43] LABS: PLATELET ESTIMATE NORMAL
[2019-08-12] MEDS ORDERED: DIPHENHYDRAMINE 50MG CAPSULE PO PRN (03:30)
[2019-08-12 04:54] LABS: CLARITY URINE CLEAR (CLEAR); COLOR URINE YELLOW (YELLOW); KETONES URINE NEGATIVE (NEGATIVE); LEUKOCYTE ESTERASE URINE NEGATIVE (NEGATIVE); NITRITE URINE NEGATIVE (NEGATIVE); OCCULT BLOOD URINE NEGATIVE (NEGATIVE); PH URINE 5.5 (4.5-8.0); PROTEIN URINE NEGATIVE (NEGATIVE); SPECIFIC GRAVITY URINE 1.013 (1.005-1.030); UROBILINOGEN URINE 0.2 E.U./dL (0.2-1.0)
[2019-08-12 05:04] LABS: *AMPHETAMINES SCREEN URINE NEGATIVE (NEGATIVE); *BARBITURATES SCREEN URINE NEGATIVE (NEGATIVE); *BENZODIAZEPINES SCREEN URINE NEGATIVE (NEGATIVE); METHADONE URINE SCREEN NEGATIVE (NEGATIVE); OPIATES URINE SCREEN NEGATIVE (NEGATIVE)
[2019-08-12 05:05] LABS: *COCAINE SCREEN URINE PRESUMTIVE POSITIVE (NEGATIVE); CANNABINOID URINE SCREEN PRESUMTIVE POSITIVE (NEGATIVE); PHENCYCLIDINE URINE SCREEN NEGATIVE (NEGATIVE)
[2019-08-12] MEDS ORDERED: HYDROMORPHONE HCL/PF 2MG/ML CPJ IV SCH (09:30)
[2019-08-12] MEDS ORDERED: ACETAMINOPHEN 325MG TABLET PO PRN (09:30)
[2019-08-12] MEDS ORDERED: OXYCODONE HCL/ACETAMINOPHEN 5/325MG TABLET PO PRN (09:30)
[2019-08-12] MEDS ORDERED: SODIUM CHLORIDE 0.45% 1,000 ML IV SCH (09:30)
[2019-08-12] MEDS ORDERED: ONDANSETRON HCL 4MG/2ML INJ IV PRN (09:30)
[2019-08-12] MEDS ORDERED: FOLIC ACID 1MG TABLET PO SCH (09:30)
[2019-08-12 10:13] VITALS: BP 133/63
== END 2019-08-12 23:37 | disposition home or self-care (01) | DRG 662 ==
LOC: ER 23:11 → 5EST 08-12 02:05 → EDBEDREQ 08-12 02:11 → ENRESERV 08-12 07:35 → CANRESERV 08-12 07:35 → ENRESERV 08-12 08:01
PROVIDERS: ADMIT Internal Medicine; ATTEND Internal Medicine
DX: D57.00 Hb-SS disease with crisis, unspecified (principal); N17.0 Acute kidney failure with tubular necrosis; E87.8 Other disorders of electrolyte and fluid balance, not elsewhere classified; D72.829 Elevated white blood cell count, unspecified; F12.90 Cannabis use, unspecified, uncomplicated; F14.90 Cocaine use, unspecified, uncomplicated; R74.0 Nonspecific elevation of levels of transaminase and lactic acid dehydrogenase [LDH]; Z88.5 Allergy status to narcotic agent; Z76.5 Malingerer [conscious simulation]; Z88.8 Allergy status to other drugs, medicaments and biological substances; Z79.1 Long term (current) use of non-steroidal anti-inflammatories (NSAID); Z79.899 Other long term (current) drug therapy; Z90.49 Acquired absence of other specified parts of digestive tract
CPT/HCPCS: 36415; 71045; 80053; 80305; 81003; 83880; 84484; 84703; 85025; 93005; 99285; J1170; J3010; J7030; Q0163

== ENCOUNTER 2020-02-03 21:34 | Emergency (ER) | payer MEDICAID ==
[~2020-02-03] VITALS: Ht 180.3 cm; Wt 66.0 kg
[2020-02-04] MEDS ORDERED: ONDANSETRON HCL 4MG/2ML INJ IV STA (02:11)
[2020-02-04] MEDS ORDERED: MORPHINE SULFATE 4 MG/ML CPJ (NOT FOR IM USE) IV STA (02:11)
[2020-02-04] MEDS ORDERED: SODIUM CHLORIDE 0.9% 1000ML BAG (SEPSIS BOLUS) IV ONE (02:15)
[2020-02-04 03:06] LABS: PROTHROMBIN TIME 10.9 sec (9.6-11.0)
[2020-02-04 03:18] LABS: CHLORIDE 105 mEq/L (98-107)
[2020-02-04 04:01] LABS: HEMATOCRIT. 22.8 % (36.0-48.0); MEAN CORPUSCULAR HEMOGLOBIN 35.7 pg (28.0-32.0); MEAN CORPUSCULAR VOLUME 101.2 fL (81.0-99.0); MEAN PLATELET VOLUME 10.6 fl (7.4-10.4); PLATELET 239 x1000/uL (130-400); RED BLOOD CELL COUNT 2.25 mill/uL (4.2-5.4); RED CELL DISTRIBUTION WIDTH 22.5 % (11.6-14.6)
[2020-02-04 04:58] LABS: PLATELET ESTIMATE NORMAL
[2020-02-04] MEDS ORDERED: SODIUM CHLORIDE 0.9% 1,000 ML IV ONE ×2 (05:00→05:15)
[2020-02-04] MEDS ORDERED: DIPHENHYDRAMINE 50MG/ML VIAL IV ONE (05:00)
[2020-02-04] MEDS ORDERED: FENTANYL CITRATE/PF 50MCG/ML 2ML VIAL IV ONE (05:00)
[2020-02-04] MEDS ORDERED: VANCOMYCIN 750 MG PREMIX 150 ML IV SCH (05:15)
[2020-02-04] MEDS ORDERED: CEFTRIAXONE 1 G PREMIX 50 ML IV ONE (05:15)
[2020-02-04 05:27] LABS: CLARITY URINE CLOUDY (CLEAR); COLOR URINE YELLOW (YELLOW); KETONES URINE NEGATIVE (NEGATIVE); LEUKOCYTE ESTERASE URINE TRACE (NEGATIVE); NITRITE URINE NEGATIVE (NEGATIVE); OCCULT BLOOD URINE NEGATIVE (NEGATIVE); PH URINE 5.5 (4.5-8.0); PROTEIN URINE TRACE (NEGATIVE); SPECIFIC GRAVITY URINE 1.011 (1.005-1.030)
[2020-02-04] MEDS ORDERED: OXYCODONE HCL/ACETAMINOPHEN 5/325MG TABLET PO PRN (10:15)
[2020-02-04] MEDS ORDERED: TRAMADOL 50MG TABLET PO PRN (11:30)
[2020-02-04 11:32] VITALS: BP 132/78
== END 2020-02-04 11:50 | disposition home or self-care (01) ==
LOC: ER 21:34 → EDBEDREQ 02-04 05:18 → EDBEDREQSVC 02-04 05:18 → EDBEDREQTM 02-04 05:18 → CANBEDREQ 02-04 11:45 → ER 02-04 11:50
DX: Z03.818 Encounter for observation for suspected exposure to other biological agents ruled out (principal); D57.01 Hb-SS disease with acute chest syndrome; R74.01 Elevation of levels of liver transaminase levels; E87.1 Hypo-osmolality and hyponatremia; D72.829 Elevated white blood cell count, unspecified; F12.90 Cannabis use, unspecified, uncomplicated; F14.10 Cocaine abuse, uncomplicated; Z76.5 Malingerer [conscious simulation]
CPT/HCPCS: 36415; 71045; 80053; 81003; 83605; 83615; 84484; 85025; 85044; 85610; 86850; 86870; 86900; 86901; 87040; 87086; 87635; 87804; 93005; 96365; 96375; 99285; C9803; J0696; J1200; J2270; J2405; J3010; J3370; J7030

== ENCOUNTER 2020-10-28 05:55 | Inpatient (IN) | payer MEDICAID ==
[~2020-10-28] VITALS: Ht 180.3 cm; Wt 59.9 kg
[2020-10-28] MEDS ORDERED: SODIUM CHLORIDE 0.9% 1,000 ML IV ONE ×2 (06:45→10:00)
[2020-10-28] MEDS ORDERED: TOPUD PO (07:25)
[2020-10-28] MEDS ORDERED: MORPHINE SULFATE 4 MG/ML CPJ (NOT FOR IM USE) IV ONE ×2 (08:00→10:30)
[2020-10-28] MEDS ORDERED: KETOROLAC 30MG/ML VIAL IV ONE (08:00)
[2020-10-28 08:52] LABS: BASOPHILS % 1.5 % (0.0-2.0); EOSINOPHILS % 8.3 % (0.0-5.0); HEMATOCRIT. 22.8 % (36.0-48.0); HEMOGLOBIN. 7.9 g/dL (12.0-16.0); MEAN CORPUSCULAR HEMOGLOBIN 36.1 pg (28.0-32.0); MEAN CORPUSCULAR VOLUME 103.7 fL (81.0-99.0); MEAN PLATELET VOLUME 8.8 fl (7.4-10.4); MONOCYTES % 9.9 % (2.0-8.0); NEUTROPHILS % 52.3 % (40.0-76.0); PLATELET 373 x1000/uL (130-400); RED BLOOD CELL COUNT 2.19 mill/uL (4.2-5.4); RED CELL DISTRIBUTION WIDTH 22.2 % (11.6-14.6)
[2020-10-28 08:57] LABS: CHLORIDE 110 mEq/L (98-107)
[2020-10-28 09:11] LABS: CLARITY URINE CLOUDY (CLEAR); COLOR URINE YELLOW (YELLOW); KETONES URINE NEGATIVE (NEGATIVE); LEUKOCYTE ESTERASE URINE 2+ (NEGATIVE); NITRITE URINE NEGATIVE (NEGATIVE); OCCULT BLOOD URINE NEGATIVE (NEGATIVE); PH URINE 5.5 (4.5-8.0); PROTEIN URINE TRACE (NEGATIVE); SPECIFIC GRAVITY URINE 1.012 (1.005-1.030); UROBILINOGEN URINE 0.2 E.U./dL (0.2-1.0)
[2020-10-28] MEDS ORDERED: FLUCONAZOLE 100MG TABLET PO ONE (09:15)
[2020-10-28] MEDS ORDERED: LEVOFLOXACIN 750MG PREMIX 150 ML IV ONE (10:30)
[2020-10-28] MEDS ORDERED: ENOXAPARIN 40MG/0.4ML SYR SUBCUT SCH (10:45)
[2020-10-28] MEDS ORDERED: IPRATROPIUM/ALBUTEROL 0.5-3(2.5)MG/3ML NEB HHN PRN (10:45)
[2020-10-28] MEDS ORDERED: MAGNESIUM/ALUMINUM HYDROXIDE/SIMETHICONE 30ML UDC PO PRN (10:45)
[2020-10-28] MEDS ORDERED: DOCUSATE SODIUM 100MG CAPSULE PO PRN (10:45)
[2020-10-28] MEDS ORDERED: ACETAMINOPHEN 650MG SUPP PR PRN ×2 (10:45)
[2020-10-28] MEDS ORDERED: CLONIDINE 0.1MG TABLET PO PRN (10:45)
[2020-10-28] MEDS ORDERED: DEXT 5%/0.45% NACL 1000ML 1,000 ML IV SCH (10:45)
[2020-10-28] MEDS ORDERED: HYDROCODONE/ACETAMINOPHEN 5/325MG TABLET PO PRN (10:45)
[2020-10-28] MEDS ORDERED: ACETAMINOPHEN 325MG TABLET PO PRN ×2 (10:45)
[2020-10-28] MEDS ORDERED: GUAIFENESIN 200MG/10ML SUGAR FREE UDC PO PRN (10:45)
[2020-10-28] MEDS ORDERED: LORAZEPAM 0.5MG TABLET PO PRN (10:45)
[2020-10-28] MEDS ORDERED: FOLIC ACID 1 MG, THIAMINE HCL 100 MG, MVI, ADULT NO.1 10 ML in DEXTROSE 5% WATER 1,000 ML IV ONE (12:00)
[2020-10-28 12:15] LABS: HAPTOGLOBIN <31.0 mg/dL (30-200)
[2020-10-28 13:55] LABS: PLATELET ESTIMATE NORMAL
[2020-10-28] MEDS ORDERED: LORAZEPAM 2MG/ML CPJ IV PRN (16:45)
[2020-10-28 18:21] VITALS: BP 137/69
[2020-10-28 20:00] VITALS: BP 145/76
[2020-10-28] MEDS: ONDANSETRON HCL 4MG/2ML INJ IV PRN (23:40)
[2020-10-28] MEDS: MORPHINE SULFATE 2 MG/ML CPJ (NOT FOR IM USE) IV PRN (23:40)
[2020-10-28] MEDS: SODIUM CHLORIDE 0.9% 1,000 ML IV SCH (23:57)
[2020-10-29] VITALS (9 sets, daily range): BP systolic 111–163; BP diastolic 64–84
[2020-10-29 04:52] LABS: CHLORIDE 112 mEq/L (98-107)
[2020-10-29 05:02] LABS: LDL CHOLESTEROL 77 mg/dL (5-100)
[2020-10-29 05:03] LABS: CREATINE KINASE 49 IU/L (26-192)
[2020-10-29 05:05] LABS: HDL CHOLESTEROL 29 mg/dL (40-59)
[2020-10-29] MEDS: ONDANSETRON HCL 4MG/2ML INJ IV PRN (06:10)
[2020-10-29] MEDS: MORPHINE SULFATE 2 MG/ML CPJ (NOT FOR IM USE) IV PRN (06:11)
[2020-10-29 06:44] LABS: MEAN CORPUSCULAR HEMOGLOBIN 35.7 pg (28.0-32.0); MEAN CORPUSCULAR VOLUME 98.5 fL (81.0-99.0); MEAN PLATELET VOLUME 9.2 fl (7.4-10.4); PLATELET 273 x1000/uL (130-400); RED BLOOD CELL COUNT 1.73 mill/uL (4.2-5.4); RED CELL DISTRIBUTION WIDTH 22.2 % (11.6-14.6)
[2020-10-29 06:53] LABS: HEMATOCRIT. 17.1 % (36.0-48.0)
[2020-10-29 06:56] LABS: HEMOGLOBIN. 6.2 g/dL (12.0-16.0)
[2020-10-29] MEDS: SODIUM CHLORIDE 0.9% 1,000 ML IV SCH ×2 (10:00→20:00)
[2020-10-29] MEDS ORDERED: HYDROCODONE/ACETAMINOPHEN 10/325MG TABLET PO PRN (10:30)
[2020-10-29] MEDS ORDERED: NALOXONE HCL 0.4MG/ML VIAL IV PRN (10:45)
[2020-10-29] MEDS ORDERED: LEVO500T89 MT (13:48)
[2020-10-29 14:09] LABS: PLATELET ESTIMATE NORMAL
[2020-10-29] MEDS ORDERED: CEFTRIAXONE 1 G PREMIX 50 ML IV SCH (14:15)
[2020-10-29] MEDS: CEFTRIAXONE 1,000 MG in DEXTROSE 5% WATER 50 ML IV SCH (18:14)
[2020-10-29] MEDS: DIPHENHYDRAMINE 50MG/ML VIAL IV PRN (23:58)
[2020-10-30] VITALS (8 sets, daily range): BP systolic 118–149; BP diastolic 55–70
[2020-10-30 01:22] LABS: HEMOGLOBIN 7.4 g/dL (12.0-16.0)
[2020-10-30 01:32] LABS: HEMATOCRIT 19.2 % (36.0-48.0)
[2020-10-30] MEDS: MORPHINE SULFATE 2 MG/ML CPJ (NOT FOR IM USE) IV PRN ×2 (01:42→06:32)
[2020-10-30] MEDS: ONDANSETRON HCL 4MG/2ML INJ IV PRN ×3 (01:49→21:05)
[2020-10-30 04:07] LABS: NEISSERIA GONORRHOEAE NAA Negative (Negative)
[2020-10-30] MEDS: SODIUM CHLORIDE 0.9% 1,000 ML IV SCH ×2 (06:00→15:15)
[2020-10-30] MEDS: DIPHENHYDRAMINE 50MG/ML VIAL IV PRN ×2 (12:26→21:04)
[2020-10-30] MEDS: KETOROLAC 30MG/ML VIAL IV PRN ×2 (12:26→21:05)
[2020-10-30] MEDS: CEFTRIAXONE 1,000 MG in DEXTROSE 5% WATER 50 ML IV SCH (15:15)
[2020-10-31] VITALS: BP 118/58
[2020-10-31 00:53] VITALS: BP 122/57
[2020-10-31 01:16] VITALS: BP 117/55
[2020-10-31] MEDS: SODIUM CHLORIDE 0.9% 1,000 ML IV SCH (02:00)
[2020-10-31 04:00] VITALS: BP 112/54
[2020-10-31] MEDS: DIPHENHYDRAMINE 50MG/ML VIAL IV PRN (05:32)
[2020-10-31] MEDS: ONDANSETRON HCL 4MG/2ML INJ IV PRN (05:32)
[2020-10-31] MEDS: KETOROLAC 30MG/ML VIAL IV PRN (05:32)
[2020-10-31 09:09] VITALS: BP 125/65
[2020-11-03 19:06] LABS: 25-HYDROXY VITAMIN D3 7.3 ng/mL (.)
== END 2020-10-31 09:29 | disposition home or self-care (01) | DRG 662 ==
LOC: ER 05:55 → 7EST 10:45 → EDBEDREQ 11:01 → ENRESERV 15:53
PROVIDERS: ADMIT Family Medicine Adult Medicine; ATTEND Family Medicine Adult Medicine
PROC: 30233N1 Transfusion of Nonautologous Red Blood Cells into Peripheral Vein, Percutaneous Approach (ICD-10-PCS; principal; 2020-10-29)
DX: D57.00 Hb-SS disease with crisis, unspecified (principal); R65.10 Systemic inflammatory response syndrome (SIRS) of non-infectious origin without acute organ dysfunction; E87.8 Other disorders of electrolyte and fluid balance, not elsewhere classified; N30.90 Cystitis, unspecified without hematuria; B37.3 Candidiasis of vulva and vagina; F11.20 Opioid dependence, uncomplicated; E79.0 Hyperuricemia without signs of inflammatory arthritis and tophaceous disease; F17.210 Nicotine dependence, cigarettes, uncomplicated; I10 Essential (primary) hypertension; Z82.49 Family history of ischemic heart disease and other diseases of the circulatory system; Z90.49 Acquired absence of other specified parts of digestive tract; Z88.6 Allergy status to analgesic agent; Z88.8 Allergy status to other drugs, medicaments and biological substances
CPT/HCPCS: 36415; 71045; 76700; 80053; 80061; 81003; 82306; 82330; 82550; 83010; 83615; 83735; 83880; 84132; 84439; 84443; 84484; 84550; 85014; 85018; 85025; 85044; 86850; 86870; 86900; 86920; 87210; 87491; 87591; 93005; 99285; C1893; J0696; J1200; J1885; J1956; J2270; J2405; J3411; J3490; J7030; J7040; J7060; J7070; P9016

== ENCOUNTER 2020-11-03 22:49 | Emergency (ER) | payer MEDICAID ==
[~2020-11-03] VITALS: Ht 180.3 cm; Wt 59.0 kg
[~2020-11-03 22:49] MED LIST changes: +LEVO500T89 MT; +TOPUD PO
[2020-11-04] MEDS ORDERED: MORPHINE SULFATE 4 MG/ML CPJ (NOT FOR IM USE) IV STA (01:50)
[2020-11-04] MEDS ORDERED: ONDANSETRON HCL 4MG/2ML INJ IV STA (01:50)
[2020-11-04] MEDS ORDERED: SODIUM CHLORIDE 0.9% 1,000 ML IV ONE (02:00)
[2020-11-04] MEDS ORDERED: DIPHENHYDRAMINE 50MG/ML VIAL IV ONE (02:00)
[2020-11-04 03:05] LABS: HEMATOCRIT. 23.5 % (36.0-48.0); HEMOGLOBIN. 8.3 g/dL (12.0-16.0); MEAN CORPUSCULAR HEMOGLOBIN 33.5 pg (28.0-32.0); MEAN CORPUSCULAR VOLUME 95.2 fL (81.0-99.0); MEAN PLATELET VOLUME 8.9 fl (7.4-10.4); PLATELET 338 x1000/uL (130-400); RED BLOOD CELL COUNT 2.47 mill/uL (4.2-5.4); RED CELL DISTRIBUTION WIDTH 24.9 % (11.6-14.6)
[2020-11-04 03:07] LABS: CHLORIDE 108 mEq/L (98-107)
[2020-11-04 05:41] LABS: NUCLEATED RED BLOOD CELLS 2 /100 WBC; PLATELET ESTIMATE NORMAL
[2020-11-04] MEDS ORDERED: IBUP-2028 MT (05:46)
[2020-11-04] MEDS ORDERED: HYDROCODONE/ACETAMINOPHEN 5/325MG TABLET PO ONE (06:00)
[2020-11-04 06:21] VITALS: BP 131/68
[2020-11-04] MEDS ORDERED: IOHEXOL-350 100 ML BOTTLE ONE (06:58)
== END 2020-11-04 06:39 | disposition home or self-care (01) ==
LOC: ER 22:49
DX: R07.89 Other chest pain (principal); D57.00 Hb-SS disease with crisis, unspecified; Z90.49 Acquired absence of other specified parts of digestive tract; Z79.899 Other long term (current) drug therapy
CPT/HCPCS: 36415; 71045; 71275; 80053; 83605; 83880; 84484; 85025; 85379; 86850; 86870; 86900; 86901; 93005; 96361; 96374; 96375; 99285; J1200; J2270; J2405; J7030; Q9967

== ENCOUNTER 2020-11-27 07:23 | Emergency (ER) | payer MEDICAID ==
[~2020-11-27] VITALS: Ht 180.3 cm; Wt 63.0 kg
[~2020-11-27 07:23] MED LIST changes: +IBUP-2028 MT
[2020-11-27] MEDS ORDERED: SODIUM CHLORIDE 0.9% 1,000 ML IV ONE (07:45)
[2020-11-27 08:15] VITALS: BP 129/55
[2020-11-27] MEDS ORDERED: KETOROLAC 15MG/ML VIAL IV ONE (08:15)
[2020-11-27 08:20] LABS: CHLORIDE 112 mEq/L (98-107)
[2020-11-27 08:23] LABS: PROTHROMBIN TIME 10.9 sec (9.6-11.0)
[2020-11-27 08:24] LABS: ETHANOL BLOOD < 10 mg/dL
[2020-11-27 08:27] LABS: HCG SCREEN NEGATIVE
[2020-11-27 08:37] LABS: HEMATOCRIT. 23.8 % (36.0-48.0); HEMOGLOBIN. 8.5 g/dL (12.0-16.0); MEAN CORPUSCULAR VOLUME 97.8 fL (81.0-99.0); MEAN PLATELET VOLUME 9.8 fl (7.4-10.4); PLATELET 284 x1000/uL (130-400); RED BLOOD CELL COUNT 2.43 mill/uL (4.2-5.4); RED CELL DISTRIBUTION WIDTH 25.7 % (11.6-14.6)
[2020-11-27] MEDS ORDERED: ONDANSETRON HCL 4MG/2ML INJ IV ONE (08:45)
[2020-11-27] MEDS ORDERED: PHENAZOPYRIDINE HCL 100MG TABLET PO ONE (09:30)
[2020-11-27 09:38] LABS: CLARITY URINE CLOUDY (CLEAR); COLOR URINE YELLOW (YELLOW); KETONES URINE NEGATIVE (NEGATIVE); LEUKOCYTE ESTERASE URINE 3+ (NEGATIVE); NITRITE URINE NEGATIVE (NEGATIVE); OCCULT BLOOD URINE NEGATIVE (NEGATIVE); PH URINE 5.5 (4.5-8.0); PROTEIN URINE 1+ (NEGATIVE); SPECIFIC GRAVITY URINE 1.012 (1.005-1.030); UROBILINOGEN URINE 0.2 E.U./dL (0.2-1.0)
[2020-11-27 09:49] LABS: OPIATES URINE SCREEN NEGATIVE (NEGATIVE); PHENCYCLIDINE URINE SCREEN NEGATIVE (NEGATIVE)
[2020-11-27 09:50] LABS: *AMPHETAMINES SCREEN URINE NEGATIVE (NEGATIVE); *BARBITURATES SCREEN URINE NEGATIVE (NEGATIVE); *BENZODIAZEPINES SCREEN URINE NEGATIVE (NEGATIVE); *COCAINE SCREEN URINE NEGATIVE (NEGATIVE)
[2020-11-27 09:52] LABS: CANNABINOID URINE SCREEN PRESUMTIVE POSITIVE (NEGATIVE)
[2020-11-27 09:58] LABS: METHADONE URINE SCREEN NEGATIVE (NEGATIVE)
[2020-11-27 10:21] LABS: PLATELET ESTIMATE NORMAL
== END 2020-11-27 10:16 | disposition left against medical advice (07) ==
LOC: ER 07:23
DX: R10.2 Pelvic and perineal pain (principal); D57.1 Sickle-cell disease without crisis; D64.9 Anemia, unspecified; Z90.49 Acquired absence of other specified parts of digestive tract; Z88.5 Allergy status to narcotic agent
CPT/HCPCS: 36415; 80053; 80305; 80320; 81003; 83690; 84703; 85025; 85044; 85610; 96361; 96374; 99283; J2405; J7030; J1885; G0480

== ENCOUNTER 2021-01-29 09:50 | Emergency (ER) | payer MEDICAID ==
[~2021-01-29] VITALS: Ht 180.3 cm; Wt 59.0 kg
[2021-01-29 09:54] VITALS: BP 138/81
[2021-01-29] MEDS ORDERED: HYDROCODONE/ACETAMINOPHEN 5/325MG TABLET PO ONE (11:15)
[2021-01-29] MEDS ORDERED: IBUPROFEN 600MG TABLET PO ONE (11:15)
[2021-01-29] MEDS ORDERED: IBUP-2029 MT (12:08)
== END 2021-01-29 12:16 | disposition home or self-care (01) ==
LOC: ER 10:21
DX: S63.611A Unspecified sprain of left index finger, initial encounter (principal); D57.1 Sickle-cell disease without crisis; Z90.49 Acquired absence of other specified parts of digestive tract; Z88.5 Allergy status to narcotic agent; X58.XXXA Exposure to other specified factors, initial encounter; Y93.89 Activity, other specified; Y92.018 Other place in single-family (private) house as the place of occurrence of the external cause
CPT/HCPCS: 73130; 99283

== ENCOUNTER 2021-01-30 08:46 | Inpatient (IN) | payer MEDICAID ==
[~2021-01-30] VITALS: Ht 180.3 cm; Wt 66.2 kg
[~2021-01-30 08:46] MED LIST changes: +IBUP-2029 MT
[2021-01-30] MEDS ORDERED: KETOROLAC 30MG/ML VIAL IV STA (09:14)
[2021-01-30] MEDS ORDERED: HYDROMORPHONE HCL/PF 2MG/ML CPJ IV ONE ×3 (09:15→14:15)
[2021-01-30] MEDS ORDERED: SODIUM CHLORIDE 0.9% 1,000 ML IV ONE (09:15)
[2021-01-30 09:58] LABS: MEAN CORPUSCULAR VOLUME 101.2 fL (81.0-99.0); MEAN PLATELET VOLUME 9.3 fl (7.4-10.4)
[2021-01-30 10:05] LABS: BASOPHILS % 0.5 % (0.0-2.0); CHLORIDE 112 mEq/L (98-107); EOSINOPHILS % 5.3 % (0.0-5.0); HEMATOCRIT. 23.7 % (36.0-48.0); HEMOGLOBIN. 8.3 g/dL (12.0-16.0); LYMPHOCYTES % 32.1 % (20.0-50.0); MEAN CORPUSCULAR HEMOGLOBIN 35.3 pg (28.0-32.0); MONOCYTES % 7.3 % (2.0-8.0); NEUTROPHILS % 54.8 % (40.0-76.0); PLATELET 401 x1000/uL (130-400); RED BLOOD CELL COUNT 2.34 mill/uL (4.2-5.4); RED CELL DISTRIBUTION WIDTH 26.4 % (11.6-14.6)
[2021-01-30 11:04] LABS: PLATELET ESTIMATE NORMAL
[2021-01-30] MEDS ORDERED: DIPHENHYDRAMINE 50MG CAPSULE PO ONE (11:45)
[2021-01-30] MEDS ORDERED: ACETAMINOPHEN 650MG/20.3ML UDC GT PRN (16:15)
[2021-01-30] MEDS ORDERED: ONDANSETRON HCL 4MG/2ML INJ IV PRN (16:15)
[2021-01-30] MEDS ORDERED: IPRATROPIUM/ALBUTEROL 0.5-3(2.5)MG/3ML NEB NEB PRN (16:15)
[2021-01-30] MEDS ORDERED: HYDROCODONE/ACETAMINOPHEN 5/325MG TABLET PO PRN (16:15)
[2021-01-30] MEDS ORDERED: CEFTRIAXONE 1 G PREMIX 50 ML IV NR (16:15)
[2021-01-30] MEDS ORDERED: DOCUSATE SODIUM 100MG CAPSULE PO PRN (16:15)
[2021-01-30] MEDS ORDERED: GUAIFENESIN 200MG/10ML SUGAR FREE UDC PO PRN (16:15)
[2021-01-30] MEDS ORDERED: MAGNESIUM/ALUMINUM HYDROXIDE/SIMETHICONE 30ML UDC PO PRN (16:15)
[2021-01-30] MEDS ORDERED: CLONIDINE 0.1MG TABLET PO PRN (16:15)
[2021-01-30] MEDS ORDERED: ACETAMINOPHEN 650MG SUPP PR PRN (16:15)
[2021-01-30] MEDS ORDERED: LORAZEPAM 2MG/ML CPJ IV PRN (16:15)
[2021-01-30] MEDS ORDERED: NA PHOS,M-B/NA PHOS,DI-BA ENEMA 118ML PR PRN (16:15)
[2021-01-30] MEDS ORDERED: NALOXONE HCL 0.4MG/ML VIAL IV PRN (16:30)
[2021-01-30 16:49] LABS: HCG SCREEN NEGATIVE
[2021-01-30] MEDS: DEXT 5%/0.45% NACL 1000ML 1,000 ML IV SCH (16:54)
[2021-01-30] MEDS: PANTOPRAZOLE SODIUM 40 MG/VIAL IV SCH (16:54)
[2021-01-30] MEDS: DIPHENHYDRAMINE 50MG/ML VIAL IV PRN ×3 (16:55→23:55)
[2021-01-30 17:28] LABS: CLARITY URINE CLEAR (CLEAR); COLOR URINE YELLOW (YELLOW); KETONES URINE NEGATIVE (NEGATIVE); LEUKOCYTE ESTERASE URINE TRACE (NEGATIVE); NITRITE URINE NEGATIVE (NEGATIVE); OCCULT BLOOD URINE NEGATIVE (NEGATIVE); PROTEIN URINE TRACE (NEGATIVE); SPECIFIC GRAVITY URINE 1.011 (1.005-1.030); UROBILINOGEN URINE 0.2 E.U./dL (0.2-1.0)
[2021-01-30 17:48] LABS: *AMPHETAMINES SCREEN URINE NEGATIVE (NEGATIVE); *BARBITURATES SCREEN URINE NEGATIVE (NEGATIVE); *BENZODIAZEPINES SCREEN URINE NEGATIVE (NEGATIVE); METHADONE URINE SCREEN NEGATIVE (NEGATIVE)
[2021-01-30 17:49] LABS: OPIATES URINE SCREEN NEGATIVE (NEGATIVE); PHENCYCLIDINE URINE SCREEN NEGATIVE (NEGATIVE)
[2021-01-30 17:57] LABS: *COCAINE SCREEN URINE PRESUMTIVE POSITIVE (NEGATIVE); CANNABINOID URINE SCREEN PRESUMTIVE POSITIVE (NEGATIVE)
[2021-01-30] MEDS: FOLIC ACID 1MG TABLET PO SCH (19:03)
[2021-01-30] MEDS: HYDROMORPHONE HCL/PF 2MG/ML CPJ IV PRN ×2 (20:34→23:50)
[2021-01-30 21:10] VITALS: BP 126/70
[2021-01-30 21:26] LABS: HEMATOCRIT 23.2 % (36.0-48.0); HEMOGLOBIN 7.8 g/dL (12.0-16.0)
[2021-01-31] VITALS: BP 126/70
[2021-01-31] MEDS: DEXT 5%/0.45% NACL 1000ML 1,000 ML IV SCH ×3 (02:18→22:27)
[2021-01-31 04:00] VITALS: BP 113/60
[2021-01-31] MEDS: HYDROMORPHONE HCL/PF 2MG/ML CPJ IV PRN ×5 (05:08→22:18)
[2021-01-31] MEDS: DIPHENHYDRAMINE 50MG/ML VIAL IV PRN ×5 (05:09→22:18)
[2021-01-31 08:00] VITALS: BP 146/72
[2021-01-31 08:21] LABS: CHLORIDE 109 mEq/L (98-107)
[2021-01-31 08:35] LABS: BASOPHILS % 0.9 % (0.0-2.0); EOSINOPHILS % 4.2 % (0.0-5.0); HEMOGLOBIN. 7.3 g/dL (12.0-16.0); LYMPHOCYTES % 20.6 % (20.0-50.0); MEAN CORPUSCULAR HEMOGLOBIN 34.7 pg (28.0-32.0); MEAN CORPUSCULAR VOLUME 99.2 fL (81.0-99.0); MEAN PLATELET VOLUME 10.2 fl (7.4-10.4); MONOCYTES % 7.3 % (2.0-8.0); PLATELET 394 x1000/uL (130-400); RED BLOOD CELL COUNT 2.12 mill/uL (4.2-5.4)
[2021-01-31 08:42] LABS: HEPATITIS B SURFACE ANTIGEN NEGATIVE
[2021-01-31] MEDS: FOLIC ACID 1MG TABLET PO SCH (09:38)
[2021-01-31] MEDS: PANTOPRAZOLE SODIUM 40 MG/VIAL IV SCH (09:38)
[2021-01-31] MEDS: CEFTRIAXONE 1,000 MG in DEXTROSE 5% WATER 50 ML IV SCH (11:05)
[2021-01-31 12:00] VITALS: BP 160/64
[2021-01-31 13:13] LABS: HEMOGLOBIN 7.3 g/dL (12.0-16.0)
[2021-01-31 13:20] LABS: HEMATOCRIT 20.9 % (36.0-48.0)
[2021-01-31 16:00] VITALS: BP 129/79
[2021-01-31 20:00] VITALS: BP 120/70
[2021-02-01] VITALS (10 sets, daily range): BP systolic 114–164; BP diastolic 51–94
[2021-02-01] MEDS: HYDROMORPHONE HCL/PF 2MG/ML CPJ IV PRN ×4 (01:26→12:27)
[2021-02-01] MEDS: DIPHENHYDRAMINE 50MG/ML VIAL IV PRN ×4 (05:58→17:13)
[2021-02-01] MEDS: DEXT 5%/0.45% NACL 1000ML 1,000 ML IV SCH (08:15)
[2021-02-01] MEDS: PANTOPRAZOLE SODIUM 40 MG/VIAL IV SCH (08:43)
[2021-02-01] MEDS: FOLIC ACID 1MG TABLET PO SCH (08:43)
[2021-02-01] MEDS: CEFTRIAXONE 1,000 MG in DEXTROSE 5% WATER 50 ML IV SCH (08:43)
[2021-02-01 10:45] LABS: HEMOGLOBIN 7.1 g/dL (12.0-16.0); MEAN CORPUSCULAR HEMOGLOBIN 33.8 pg (28.0-32.0); MEAN CORPUSCULAR VOLUME 98.7 fL (81.0-99.0); PLATELET 363 x1000/uL (130-400); RED BLOOD CELL COUNT 2.09 mill/uL (4.2-5.4); RED CELL DISTRIBUTION WIDTH 25.9 % (11.6-14.6)
[2021-02-01 10:48] LABS: CHLORIDE 109 mEq/L (98-107)
[2021-02-01 11:00] LABS: HEMATOCRIT 20.7 % (36.0-48.0)
[2021-02-01] MEDS ORDERED: HYDROCODONE/ACETAMINOPHEN 5/325MG TABLET PO PRN (15:45)
[2021-02-01] MEDS ORDERED: HYDROMORPHONE HCL/PF 2MG/ML CPJ IV PRN (16:15)
[2021-02-01] MEDS ORDERED: FAMOTIDINE 20MG/2ML VIAL IV SCH (21:00)
== END 2021-02-01 21:10 | disposition home or self-care (01) | DRG 662 ==
LOC: ER 09:01 → EDBEDREQ 14:38 → 6WST 15:44 → EDBEDREQ 15:48 → SUPCPDRO 16:04 → ENRESERV 19:31
PROVIDERS: ADMIT Internal Medicine; ATTEND Internal Medicine
PROC: 30233N1 Transfusion of Nonautologous Red Blood Cells into Peripheral Vein, Percutaneous Approach (ICD-10-PCS; principal; 2021-02-01)
DX: D57.00 Hb-SS disease with crisis, unspecified (principal); K76.0 Fatty (change of) liver, not elsewhere classified; E87.8 Other disorders of electrolyte and fluid balance, not elsewhere classified; E88.09 Other disorders of plasma-protein metabolism, not elsewhere classified; D72.829 Elevated white blood cell count, unspecified; E86.0 Dehydration; M79.10 Myalgia, unspecified site; Z20.822 Contact with and (suspected) exposure to COVID-19; R74.01 Elevation of levels of liver transaminase levels; E80.6 Other disorders of bilirubin metabolism; N28.1 Cyst of kidney, acquired; F14.10 Cocaine abuse, uncomplicated; F12.10 Cannabis abuse, uncomplicated; F17.210 Nicotine dependence, cigarettes, uncomplicated; Z82.49 Family history of ischemic heart disease and other diseases of the circulatory system; Z90.49 Acquired absence of other specified parts of digestive tract; Z88.6 Allergy status to analgesic agent; Z88.8 Allergy status to other drugs, medicaments and biological substances; Z79.2 Long term (current) use of antibiotics; Z79.899 Other long term (current) drug therapy; Z71.51 Drug abuse counseling and surveillance of drug abuser; F11.20 Opioid dependence, uncomplicated; F19.10 Other psychoactive substance abuse, uncomplicated; Z71.89 Other specified counseling
CPT/HCPCS: 36415; 71045; 76700; 80048; 80053; 80305; 81003; 84443; 84703; 85014; 85018; 85025; 85027; 85044; 86705; 86709; 86803; 86850; 86870; 86900; 86920; 87340; 87426; 93005; 93306; 99285; C9113; J0696; J1170; J1200; J1885; J7030; J7060; P9016; Q0163

== ENCOUNTER 2021-02-10 20:48 | Emergency (ER) | payer MEDICAID ==
[~2021-02-10 20:48] MED LIST changes: -IBUP-2028 MT; -IBUP-2029 MT; -LEVO500T89 MT; -PROM5SYR PO; -TOPUD PO; -[UNRECOGNIZED DRUG - OTHER]
== END 2021-02-10 21:19 | disposition left against medical advice (07) ==
LOC: ER 20:48
DX: Z53.21 Procedure and treatment not carried out due to patient leaving prior to being seen by health care provider (principal)

== ENCOUNTER 2021-03-24 08:32 | Inpatient (IN) | payer MEDICAID ==
[~2021-03-24] VITALS: Ht 180.3 cm; Wt 63.9 kg
[2021-03-24] MEDS ORDERED: VISCOUS LIDOCAINE 2% 15 ML UDC PO ONE (09:45)
[2021-03-24] MEDS ORDERED: KETOROLAC 60MG/2ML VIAL IM ONE (09:45)
[2021-03-24] MEDS ORDERED: BACITRACIN ZINC OINT UDPKT TOP ONE (09:45)
[2021-03-24] MEDS ORDERED: LIDOCAINE HCL/PF 1% 10 MG/ML 5ML VIAL INFIL ONE (09:45)
[2021-03-24] MEDS ORDERED: TETANUS, DIPHTHERIA, PERTUSSIS VAC/PF 0.5ML (>10YR OLD) IM ONE (09:45)
[2021-03-24 12:58] LABS: BASOPHILS % 0.4 % (0.0-2.0); EOSINOPHILS % 0.7 % (0.0-5.0); HEMATOCRIT. 25.9 % (36.0-48.0); HEMOGLOBIN. 8.7 g/dL (12.0-16.0); LYMPHOCYTES % 13.6 % (20.0-50.0); MEAN CORPUSCULAR HEMOGLOBIN 34.4 pg (28.0-32.0); MEAN CORPUSCULAR VOLUME 101.8 fL (81.0-99.0); MEAN PLATELET VOLUME 9.6 fl (7.4-10.4); MONOCYTES % 5.5 % (2.0-8.0); NEUTROPHILS % 79.8 % (40.0-76.0); PLATELET 357 x1000/uL (130-400); RED BLOOD CELL COUNT 2.54 mill/uL (4.2-5.4); RED CELL DISTRIBUTION WIDTH 23.3 % (11.6-14.6)
[2021-03-24 13:06] LABS: CHLORIDE 111 mEq/L (98-107)
[2021-03-24 13:28] LABS: PROTHROMBIN TIME 10.7 sec (9.6-11.0)
[2021-03-24 13:37] LABS: HCG SCREEN NEGATIVE
[2021-03-24] MEDS ORDERED: HYDROCODONE/ACETAMINOPHEN 5/325MG TABLET PO ONE (13:45)
[2021-03-24] MEDS ORDERED: IPRATROPIUM/ALBUTEROL 0.5-3(2.5)MG/3ML NEB HHN PRN (15:30)
[2021-03-24] MEDS ORDERED: ONDANSETRON HCL 4MG/2ML INJ IV PRN (15:30)
[2021-03-24] MEDS ORDERED: HYDROMORPHONE HCL/PF 2MG/ML CPJ IV SCH (15:30)
[2021-03-24] MEDS ORDERED: DIPHENHYDRAMINE 25MG CAPSULE PO ONE ×2 (15:30→20:45)
[2021-03-24] MEDS: SODIUM CHLORIDE 0.45% 1,000 ML IV SCH (16:31)
[2021-03-24 17:37] LABS: *AMPHETAMINES SCREEN URINE NEGATIVE (NEGATIVE); *BARBITURATES SCREEN URINE NEGATIVE (NEGATIVE); *BENZODIAZEPINES SCREEN URINE NEGATIVE (NEGATIVE); METHADONE URINE SCREEN NEGATIVE (NEGATIVE); OPIATES URINE SCREEN NEGATIVE (NEGATIVE)
[2021-03-24 17:38] LABS: PHENCYCLIDINE URINE SCREEN NEGATIVE (NEGATIVE)
[2021-03-24 17:54] LABS: *COCAINE SCREEN URINE PRESUMTIVE POSITIVE (NEGATIVE); CANNABINOID URINE SCREEN PRESUMTIVE POSITIVE (NEGATIVE)
[2021-03-24] MEDS: DIPHENHYDRAMINE 25MG CAPSULE PO PRN (20:46)
[2021-03-24] MEDS: HYDROMORPHONE HCL/PF 2MG/ML CPJ IV PRN (20:46)
[2021-03-25] MEDS: HYDROMORPHONE HCL/PF 2MG/ML CPJ IV PRN ×3 (01:13→10:17)
[2021-03-25 01:43] VITALS: BP 153/82
[2021-03-25] MEDS: DIPHENHYDRAMINE 25MG CAPSULE PO PRN ×2 (03:21→10:17)
[2021-03-25 08:00] VITALS: BP 122/74
[2021-03-25] MEDS: SODIUM CHLORIDE 0.45% 1,000 ML IV SCH (08:26)
[2021-03-25 09:30] LABS: CHLORIDE 108 mEq/L (98-107)
[2021-03-25 09:37] LABS: BASOPHILS % 0.4 % (0.0-2.0); EOSINOPHILS % 3.1 % (0.0-5.0); HEMATOCRIT. 24.8 % (36.0-48.0); HEMOGLOBIN. 8.5 g/dL (12.0-16.0); LYMPHOCYTES % 14.9 % (20.0-50.0); MEAN CORPUSCULAR HEMOGLOBIN 34.7 pg (28.0-32.0); MEAN CORPUSCULAR VOLUME 101.1 fL (81.0-99.0); MEAN PLATELET VOLUME 9.9 fl (7.4-10.4); MONOCYTES % 8.8 % (2.0-8.0); NEUTROPHILS % 72.8 % (40.0-76.0); PLATELET 299 x1000/uL (130-400); RED BLOOD CELL COUNT 2.45 mill/uL (4.2-5.4); RED CELL DISTRIBUTION WIDTH 22.1 % (11.6-14.6)
[2021-03-25 10:03] LABS: BG BASE EXCESS -1.9 mmol/L (-2.0-2.0); BG CARBOXYHEMOGLOBIN 2.5 % (0.5-1.5); BG DEOXYHEMOGLOBIN 2.2 % (0.0-5.0); BG HCO3 ACT 22.5 mmol/L (22.0-26.0); BG METHEMOGLOBIN 0.6 % (0.0-1.5); BG OXYGEN SATURATION 97.7 % (92.0-98.5); BG OXYHEMOGLOBIN 94.7 % (94.0-97.0); BG PCO2 36.7 mmHg (35.0-45.0); BG PH 7.406 (7.350-7.450); BG PO2 119.6 mmHg (75.0-100.0); BG SAMPLE SITE RIGHT RADIAL; BG TOTAL HEMOGLOBIN 8.6 g/dL (12.0-18.0); BG VENT MODE ROOM AIR
[2021-03-25 12:00] VITALS: BP 160/82
[2021-03-25] MEDS ORDERED: HYDR-4005 MT (13:53)
[2021-03-25] MEDS ORDERED: HYDROMORPHONE HCL/PF 2MG/ML CPJ IV SCH ×2 (14:00)
[2021-03-25 15:51] LABS: PLATELET ESTIMATE NORMAL
[2021-03-25 16:00] VITALS: BP 167/80
== END 2021-03-25 17:21 | disposition left against medical advice (07) | DRG 342 ==
LOC: ER 08:43 → 6EST 13:32 → EDBEDREQ 13:45 → EDBEDREQTM 13:45 → ENRESERV 23:50
PROVIDERS: ADMIT Internal Medicine; ATTEND Internal Medicine
PROC: 0CQ1XZZ Repair Lower Lip, External Approach (ICD-10-PCS; principal; 2021-03-24)
DX: S82.145A Nondisplaced bicondylar fracture of left tibia, initial encounter for closed fracture (principal); D57.00 Hb-SS disease with crisis, unspecified; R65.10 Systemic inflammatory response syndrome (SIRS) of non-infectious origin without acute organ dysfunction; K76.0 Fatty (change of) liver, not elsewhere classified; D72.829 Elevated white blood cell count, unspecified; F11.20 Opioid dependence, uncomplicated; S01.511A Laceration without foreign body of lip, initial encounter; Z20.822 Contact with and (suspected) exposure to COVID-19; Z53.29 Procedure and treatment not carried out because of patient's decision for other reasons; M85.80 Other specified disorders of bone density and structure, unspecified site; M81.0 Age-related osteoporosis without current pathological fracture; Z88.5 Allergy status to narcotic agent; Z88.8 Allergy status to other drugs, medicaments and biological substances; V89.2XXA Person injured in unspecified motor-vehicle accident, traffic, initial encounter; Y93.89 Activity, other specified; Y92.89 Other specified places as the place of occurrence of the external cause; Y99.8 Other external cause status
CPT/HCPCS: 36415; 36600; 73562; 73700; 80053; 80305; 82375; 82805; 84443; 84703; 85025; 85044; 87426; 90715; 97162; 99285; J1170; J1885; J3490; Q0163

== ENCOUNTER 2021-08-01 04:33 | Emergency (ER) | payer MEDICAID ==
[~2021-08-01] VITALS: Ht 175.3 cm; Wt 72.0 kg
[~2021-08-01 04:33] MED LIST changes: +HYDR-4005 MT; -HYDR4TAB4 MT
[2021-08-01] MEDS ORDERED: KETOROLAC 30MG/ML VIAL IV STA (05:34)
[2021-08-01] MEDS ORDERED: ONDANSETRON HCL 4MG/2ML INJ IV STA (05:34)
[2021-08-01] MEDS ORDERED: SODIUM CHLORIDE 0.9% 1,000 ML IV ONE (05:45)
[2021-08-01 05:54] LABS: HEMATOCRIT. 24.5 % (36.0-48.0); HEMOGLOBIN. 8.6 g/dL (12.0-16.0); MEAN CORPUSCULAR HEMOGLOBIN 36.4 pg (28.0-32.0); MEAN CORPUSCULAR VOLUME 103.3 fL (81.0-99.0); PLATELET 294 x1000/uL (130-400); RED BLOOD CELL COUNT 2.37 mill/uL (4.2-5.4); RED CELL DISTRIBUTION WIDTH 21.6 % (11.6-14.6)
[2021-08-01 06:03] LABS: CHLORIDE 110 mEq/L (98-107)
[2021-08-01 06:13] LABS: HCG SCREEN NEGATIVE
[2021-08-01 06:20] VITALS: BP 120/59
[2021-08-01 07:15] LABS: NUCLEATED RED BLOOD CELLS 1 /100 WBC; PLATELET ESTIMATE NORMAL
== END 2021-08-01 06:52 | disposition left against medical advice (07) ==
LOC: ER 04:33
DX: M79.10 Myalgia, unspecified site (principal); D57.1 Sickle-cell disease without crisis; Z88.5 Allergy status to narcotic agent
CPT/HCPCS: 36415; 80053; 84703; 85025; 96374; 99283; J1885; J2405; J7030